=== PATIENT | female | born 1955 | race Caucasian/White ===

== ENCOUNTER 2018-06-05 02:17 | Emergency (ER) | payer MEDICARE, MEDICAID ==
--- NOTE | 2018-06-05 02:53 | ED ---
Neurological HPI - HPI Summary HPI Summary: This patient is a 63 year old F brought in by ambulance to [facility] from [facility] due to seizure like activity prior to arrival. Patient states she was told she had a seizure but does not recall the event. Patient denies incontinence. Patient has history of opioid use (not used in past 2 years) and meth uses (not used in roughly two months). [facility] facility was called for a more descriptive history as patient is unsure of events. [facility] staff described a generalized tonic-clonic seizure lasting 1-2 minutes. Patient was confused for a few minutes after and became more alert upon ambulance arrival. - History of Current Complaint Stated Complaint: SEIZURE Time Seen by Provider: 06/05/18 02:39 Hx Obtained From: Patient Onset/Duration: Sudden Onset Number of Seizures: 1 Neurological Deficit Location: Generalized Syncope Context: Witnessed Frequency: Episodes x___ - 1, Episodes Lasting ____ (in Mins/Days/Weeks/Years) - 1-2 minutes Seizure Character: Generalized, Total-Clonic - Allergy/Home Medications Allergies/Adverse Reactions: Allergies Allergy/AdvReac Type Severity Reaction Status Date / Time acetaminophen Allergy Unknown Verified 06/05/18 03:24 [From Darvocet-N] Reaction Details codeine Allergy Unknown Verified 06/05/18 03:24 Reaction Details ketorolac [From Toradol] Allergy Unknown Verified 06/05/18 03:24 Reaction Details methadone Allergy Unknown Verified 06/05/18 03:24 Reaction Details morphine Allergy Unknown Verified 06/05/18 03:24 Reaction Details Penicillins Allergy Unknown Verified 06/05/18 03:24 Reaction Details propoxyphene Allergy Unknown Verified 06/05/18 03:24 [From Darvocet-N] Reaction Details quetiapine [From Seroquel] Allergy Unknown Verified 06/05/18 03:24 Reaction Details sumatriptan [From Imitrex] Allergy Unknown Verified 06/05/18 03:24 Reaction Details Home Medications: Home Medications Albuterol HFA INHALER* [Ventolin HFA Inhaler*] 2 puff INH Q4H PRN 06/05/18 [ History Confirmed 06/05/18] Alendronate (NF) [Fosamax (NF)] 70 mg PO WEEKLY 06/05/18 [History Confirmed ] Aspirin 81 mg CHEW TAB* [Aspirin Low Dose TAB*] 81 mg PO DAILY 06/05/18 [ History Confirmed 06/05/18] Buprenorp/Nalox 8-2 MG FILM [Suboxone 8 mg-2 mg Sl Film] 1 each SL BID 06/05/18 [History Confirmed 06/05/18] Calcium Carbonate/Vitamin D3 [Calcium 500+D 500-200 mg-Unit] 1 tab PO DAILY [History Confirmed 06/05/18] Carvedilol TAB* [Coreg TAB*] 6.25 mg PO DAILY 06/05/18 [History Confirmed ] Fluticasone NASAL SPRAY 50MCG* [Flonase NASAL SPRAY 50MCG*] 2 spray BOTH NARES DAILY 06/05/18 [History Confirmed 06/05/18] Levothyroxine TAB* [Synthroid TAB*] 75 mcg PO DAILY 06/05/18 [History Confirmed 06/05/18] Loratadine 10 mg PO DAILY 06/05/18 [History Confirmed 06/05/18] Melatonin [Meladox] 3 mg PO BEDTIME PRN 06/05/18 [History Confirmed 06/05/18] Omeprazole CAP* [Prilosec CAP* 20 MG] 20 mg PO BID 06/05/18 [History Confirmed 06/05/18] Oxybutynin Chloride 10 mg PO BID 06/05/18 [History Confirmed 06/05/18] Sertraline* [Zoloft*] 100 mg PO DAILY 06/05/18 [History Confirmed 06/05/18] traZODone TAB* [Desyrel TAB*] 100 mg PO BEDTIME 06/05/18 [History Confirmed ] PMH/Surg Hx/FS Hx/Imm Hx EENT History: Denies: Hx Deafness Psychiatric History: Reports: Hx Substance Abuse - Surgical History Surgery Procedure, Year, and Place: none - Family History Known Family History: Positive: Hypertension - Social History [place]: [place] Alcohol Use: None Substance Use Type: Reports: None Substance Use Comment - Amount & Last Used: hx of opioid and meth abuse, Smoking Status (MU): Former Smoker Review of Systems Negative: Fever Neurological: Other - seizure like activity All Other Systems Reviewed And Are Negative: Yes Physical Exam - Summary Physical Exam Summary: Appearance: Well-appearing, Well-nourished, lying in bed comfortably Skin: Warm, dry, no obvious rash Eyes: sclera anicteric, no conjunctival pallor ENT: mucous membranes moist, Neck: Supple, nontender Respiratory: Clear to auscultation, no signs of respiratory distress Cardiovascular: Normal S1, S2. No murmurs. Normal distal pulses in tibial and radial bilaterally. Abdomen: Soft, nontender, normal active bowel sounds present Musculoskeletal: Normal, Strength/ROM Intact Neurological: A&Ox3, awake and alert, mentation is normal, speech is fluent and appropriate Psychiatric: affect is normal, does not appear anxious or depressed Triage Information Reviewed: Yes Vital Signs Reviewed: Yes Diagnostics - Laboratory Result Diagrams: 06/05/18 03:38 06/05/18 03:38 Lab Statement: Any lab studies that have been ordered have been reviewed, and results considered in the medical decision making process. - CT Brain CT CT Interpretation Completed By: Radiologist - No acute intracranial abnormality. ED Physician has reviewed this report. Course/Dx - Course Course Of Treatment: The patient has a history of seizures noted in the [facility] intake, and she does describe previous episodes which she is not sure were related to hypoglycemia versus seizures. The episode described by staff at [facility] to sound like generalized tonic-clonic seizure of fairly short duration, perhaps a minute or 2. She was postictal until the arrival of the ambulance. She is not on any new medications that would precipitate seizures, nor is she withdrawing from alcohol. Consequently, I have elected to start her on Dilantin pending neurological consultation which will need to be arranged through [facility]. - Diagnoses Provider Diagnoses: Seizure disorder Discharge - Sign-Out/Discharge Documenting (check all that apply): Patient Departure - Discharge Plan Condition: Good Disposition: HOME Prescriptions: Phenytoin CAP(*) [Dilantin CAP(*)] 100 mg PO TID #90 cap.er Patient Education Materials: Recurrent Seizures in Adults (ED) Referrals: Ruddy Huetra MD [Medical Doctor] - - Billing Disposition and Condition Condition: GOOD Disposition: Home - Attestation Statements Document Initiated by Scribe: Yes Documenting Scribe: Aida Love Provider For Whom Scribe is Documenting (Include Credential): Ronan Wilkes MD Scribe Attestation: Aida Shine, scribed for Ronan Wilkes MD on 06/06/18 at 0014. Scribe Documentation Reviewed: Yes Provider Attestation: The documentation as recorded by the Aida berger accurately reflects the service I personally performed and the decisions made by me, Ronan Wilkes MD
[2018-06-05 03:53] LABS: ABS Basophils 0 10^3/ul (0-0.2); ABS Eosinophils 0.1 10^3/ul (0-0.6); ABS Lymphocytes 1.7 10^3/ul (1.0-4.8); ABS Monocytes 0.5 10^3/ul (0-0.8); ABS Neutrophils 2.2 10^3/ul (1.5-7.7); ABS Nucleated RBC 0 10^3/ul; Eosinophil % 2.4 % (0-6); Hematocrit 29 % (35-47); Hemoglobin 9.5 g/dl (12.0-16.0); Lymphocyte % 38.2 % (25-47); Mean Corpuscular HGB Conc 33 g/dl (31-36); Mean Corpuscular Hemoglobin 32 pg (27-31); Mean Corpuscular Volume 97 fL (80-97); Mean Platelet Volume 7.7 fL (7.4-10.4); Nucleated Red Blood Cells % 0.1; Platelet Count 229 10^3/ul (150-450); Red Blood Count 2.99 10^6/ul (4.00-5.40); Red Cell Distribution Width 14 % (10.5-15); White Blood Count 4.6 10^3/ul (3.5-10.8)
[2018-06-05 04:11] LABS: EGFR Non-African American 71.4 (>60)
[2018-06-05 05:00] LABS: Urine Appearance Clear; Urine Blood Negative (Negative); Urine Color Yellow; Urine Ketones Negative (Negative); Urine Protein Negative (Negative); Urine Red Blood Cell Absent (Absent); Urine Urobilinogen Negative (Negative); Urine White Blood Cell 1+(6-10/hpf) (Absent)
[2018-06-05] MEDS ORDERED: Phenytoin IV(*) 1,000 MG in NS 0.9% 250 ML* 180 ML IV ONE (05:21)
[2018-06-05 06:55] VITALS: BP 99/63
[2018-06-05] MEDS ORDERED: Phenytoin CAP(*) 100 MG CAP.ER PO ONE ×2 (07:00)
== END 2018-06-05 06:54 | disposition home or self-care (01) ==
LOC: ED 02:17
DX: R56.9 Unspecified convulsions (principal); Z88.5 Allergy status to narcotic agent; Z88.0 Allergy status to penicillin; Z88.8 Allergy status to other drugs, medicaments and biological substances
CPT/HCPCS: 36415; 70450; 80053; 81003; 81015; 83605; 83735; 85025; 87086; 96374; 99283; A9270-GY

== ENCOUNTER 2018-06-05 22:12 | Inpatient (IN) | payer MEDICARE, MEDICAID ==
--- NOTE | 2018-06-05 22:32 | UC ---
Seizure HPI - HPI Summary HPI Summary: The pt is a 63 y/o female with a PMHx of opioid use brought in by ambulance to [facility] s/p a witnessed seizure episode lasting 90 seconds. The pt states that she was awake unlike a previous similar episode 1 day ago for which she was seen at [facility]. She notes SOB, tremors, fatigue, weakness, dyspnea, and bilateral LE soreness but denies LOC and incontinence. She says that her joints and muscles feel like she just ran a marathon. The LE pain is rated 7/10 in severity. Before the last 2 episodes, her last seizure occurred on 01/27/2018. As per EMS her BG was 123 mg/dL. The pt received Dilantin PO en route. She arrives from the [facility] ([facility] Home Medications Medication Instructions Recorded Confirmed Type Albuterol HFA INHALER* [Ventolin 2 puff INH Q4H PRN 06/05/18 06/05/18 History HFA Inhaler*] Alendronate (NF) [Fosamax (NF)] 70 mg PO WEEKLY 06/05/18 06/05/18 History Aspirin 81 mg CHEW TAB* [Aspirin 81 mg PO DAILY 06/05/18 06/05/18 History Low Dose TAB*] Buprenorp/Nalox 8-2 MG FILM 1 each SL BID 06/05/18 06/05/18 History [Suboxone 8 mg-2 mg Sl Film] Calcium Carbonate/Vitamin D3 1 tab PO DAILY 06/05/18 06/05/18 History [Calcium 500+D 500-200 mg-Unit] Carvedilol TAB* [Coreg TAB*] 6.25 mg PO DAILY 06/05/18 06/05/18 History Fluticasone NASAL SPRAY 50MCG* 2 spray BOTH NARES DAILY 06/05/18 06/05/18 History [Flonase NASAL SPRAY 50MCG*] Levothyroxine TAB* [Synthroid TAB*] 75 mcg PO DAILY 06/05/18 06/05/18 History Loratadine 10 mg PO DAILY 06/05/18 06/05/18 History Melatonin [Meladox] 3 mg PO BEDTIME PRN 06/05/18 06/05/18 History Omeprazole CAP* [Prilosec CAP* 20 20 mg PO BID 06/05/18 06/05/18 History MG] Oxybutynin Chloride 10 mg PO BID 06/05/18 06/05/18 History Phenytoin CAP(*) [Dilantin CAP(*)] 100 mg PO TID #90 cap.er 06/05/18 06/05/18 Rx Sertraline* [Zoloft*] 100 mg PO DAILY 06/05/18 06/05/18 History traZODone TAB* [Desyrel TAB*] 100 mg PO BEDTIME 06/05/18 06/05/18 History - History Of Current Complaint Chief Complaint: EDSeizure Stated Complaint: SEIZURE Time Seen by Provider: 06/05/18 22:27 Hx Obtained From: Patient, EMS Onset/Duration: Resolved Aggravating Factor(s): Nothing Alleviating Factor(s): Nothing Related History: Similar Episode/Dx As - 1 day ago-06/04/2018 and January 2018 - Allergies/Home Medications Allergies/Adverse Reactions: Allergies Allergy/AdvReac Type Severity Reaction Status Date / Time acetaminophen Allergy Unknown Verified 06/05/18 03:24 [From Darvocet-N] Reaction Details codeine Allergy Unknown Verified 06/05/18 03:24 Reaction Details ketorolac [From Toradol] Allergy Unknown Verified 06/05/18 03:24 Reaction Details methadone Allergy Unknown Verified 06/05/18 03:24 Reaction Details morphine Allergy Unknown Verified 06/05/18 03:24 Reaction Details Penicillins Allergy Unknown Verified 06/05/18 03:24 Reaction Details propoxyphene Allergy Unknown Verified 06/05/18 03:24 [From Darvocet-N] Reaction Details quetiapine [From Seroquel] Allergy Unknown Verified 06/05/18 03:24 Reaction Details sumatriptan [From Imitrex] Allergy Unknown Verified 06/05/18 03:24 Reaction Details PMH/Surg Hx/FS Hx/Imm Hx Previously Healthy: No - Hx of substance use Neurological History: Seizures - Surgical History Surgical History: Unable to Obtain/Confirm Surgery Procedure, Year, and Place: none - Family History Known Family History: Positive: Hypertension - Social History Occupation: Retired Lives: Assisted Living - [facility]) Alcohol Use: None Substance Use Type: None Substance Use Comment - Amount & Last Used: hx of opioid and meth abuse, Smoking Status (MU): Former Smoker Review of Systems All Other Systems Reviewed And Are Negative: Yes Constitutional: Positive: Fatigue Respiratory: Positive: Shortness Of Breath, Other - Dyspnea Genitourinary: Positive: Negative - Incontinence Motor: Positive: Other - Bilateral LE soreness Neurological: Positive: Negative - LOC, Weakness, Other - Tremors Physical Exam - Summary Physical Exam Summary: Appearance: Well-appearing, Well-nourished, lying in bed comfortably Skin: Warm, dry, no obvious rash Eyes: sclera anicteric, no conjunctival pallor ENT: mucous membranes moist, pharynx appears normal Neck: Supple, nontender Respiratory: Clear to auscultation, no signs of respiratory distress Cardiovascular: Normal S1, S2. No murmurs. Normal distal pulses in tibial and radial bilaterally. Abdomen: Soft, nontender, normal active bowel sounds present Musculoskeletal: Normal, Strength/ROM Intact, Motor function in all 4 extremities is normal and symmetric. There is no rigidity or tremor noted. Neurological: A&Ox3, awake and alert, mentation is normal, speech is fluent and appropriate, Level of consciousness nml. The patient is alert and oriented. Cranial nerves are grossly intact. Gaze is conjugate and without nystagmus. Peripheral vision is intact to confrontation. There are no gross sensory abnormalities to light touch. There is no truncal or fine motor ataxia. Gait is normal. Psychiatric: affect is normal, does not appear anxious or depressed Triage Information Reviewed: Yes Vital Signs: Initial Vital Signs Temp 98.2 F 06/05/18 22:20 Pulse 70 06/05/18 22:20 Resp 16 06/05/18 22:20 BP 133/80 06/05/18 22:20 Pulse Ox 96 06/05/18 22:20 Vital Signs Reviewed: Yes Diagnostics - Laboratory Diagnostic Studies Completed/Ordered: BRAIN CT IMPRESSION: No acute intracranial abnormality. The ED physician reviewed this radiology report. Seizure Course/Dx - Course Course Of Treatment: A 63 year-old F presents to the ED with a CC of a witnessed seizure episode lasting 90 seconds. She notes SOB, tremors, fatigue, weakness, dyspnea, and bilateral LE soreness but denies LOC and incontinence. A physical exam is unremarkable. A brain CT is unremarkable. I discussed the care of the pt with Dr. Edmund MD -hospitalist who agreed to admit the patient for monitoring and a neurology consult. The patient will be admitted with a final Dx of seizure disorder. Pt is agreeable with this plan. Allergies noted. - Differential Dx/Diagnosis Provider Diagnoses: Seizure disorder - Physician Notification/Consults Discussed Patient Care With: John Shaffer - Hospitalist Time Discussed With Above Provider: 23:15 Instructed by Provider To: Admit As Inpatient Discharge - Sign-Out/Discharge Documenting (check all that apply): Patient Departure - Admit - Discharge Plan Condition: Stable Disposition: ADMITTED TO [facility] - Billing Disposition and Condition Condition: STABLE Disposition: Admitted to [facility] - Attestation Statements Document Initiated by Scribe: Yes Documenting Scribe: Trixie Nuñez Provider For Whom Edvin is Documenting (Include Credential): Dr. Ronan Wilkes MD Scribe Attestation: Trixie Shine scressieed for Dr. Ronan Wilkes MD on 06/06/18 at 0048. Scribe Documentation Reviewed: Yes Provider Attestation: The documentation as recorded by the Trixie berger accurately reflects the service I personally performed and the decisions made by , Dr. Ronan Wilkes MD
[2018-06-05] MEDS ORDERED: levETIRAcetam IV* 1,000 MG in NS 0.9% 100 ML* 100 ML IVPB ONE (23:19)
[2018-06-05] MEDS ORDERED: Albuterol HFA INHALER* 8 gm MDI INH PRN (23:34)
[2018-06-05] MEDS ORDERED: Melatonin 3 MG TAB PO PRN (23:34)
[2018-06-06 00:06] LABS: EGFR Non-African American 70.4 (>60)
--- NOTE | 2018-06-06 01:40 | HP ---
ADMISSION HISTORY AND PHYSICAL: DATE OF ADMISSION: 06/05/18 CHIEF COMPLAINT: Recurrent seizures. HISTORY OF PRESENT ILLNESS: The patient is a 63-year-old lady with known history of seizures, where she mentioned she was admitted last January of this year and mentioned that she had atypical symptoms where she could not speak , but mentioned that she was told that she did not have a stroke. She then went out for rehab. She also has had history of illicit drug use where she mentions that her preferred drug to abuse would be p.o. pain meds and has only tried IV drug use with opiates 2 times in her life. She mentions that she has been clean of opiates, but relapsed this time with methamphetamine and currently the patient is admitted to [facility] and has been off illicit drug use for at least 33 days since she has been admitted. She was in her usual state of health until 1 day prior to admission where she presented to the ED after reportedly having what appears to be a tonic-clonic event at [facility] facility. She was then given a one-time dose Dilantin and was sent back to [facility]. Unfortunately, a few hours prior to admission, she started having some "shakes" especially of her lower extremities and felt weak and hence she was brought back to our ER for reevaluation and is currently being admitted for known seizure episode with failure of outpatient therapy. Furthermore, the patient mentions that she has not been receiving her antiseizure medication in [facility] and when asked what it was, she mentioned it started with the K and when I mentioned Bienvenidora, she mentioned that is what it was, although her previous documentation suggests that she might be on phenytoin in the past. PAST MEDICAL HISTORY: The patient, of note, is a poor historian and as mentioned unable to recall her antiseizure medications along with her medical history. She did mention a seizure episode last January of this year as described above and she also mentions that she has had problems in her sodium and potassium levels in the past. She mentions that she had some type of heart event where an AICD/pacemaker has been placed and on review of her medications on file, she is on aspirin and a beta shayna and mentions that she is being followed by a a/c technician, named Dr. Lacy in [place] part of the [facility] [place] system. She also describes a history of osteoporosis, bipolar disorder, ADHD, anxiety, and asthma as well as hypoglycemia. PAST SURGICAL HISTORY: Status post tonsillectomy, appendectomy, cholecystectomy , partial hysterectomy secondary to uterine tear during her fourth . ALLERGIES: To MORPHINE, which causes hives, TORADOL causes gastric upset and GI bleed as well as MANGOES. FAMILY HISTORY: Unknown; the patient cannot recall. SOCIAL HISTORY: History of illicit drug use mainly by p.o., has only used IV twice in her life. She smoked about 1 pack for 4 days for at least 3 years, but quit 16 years ago, normally resides at home with her , but currently at [facility] inpatient rehab. REVIEW OF SYSTEMS: The patient currently denies any headaches, dizziness, fevers, chills, nausea, vomiting, chest pain, shortness of breath, increased cough or sputum production, abdominal pain, diarrhea, constipation, pain and/or increased frequency on urination, myalgias, arthralgias, throat pain, or new skin lesions. The rest of the 14-point review of systems is otherwise unremarkable. PHYSICAL EXAMINATION GENERAL APPEARANCE: The patient is awake, somewhat confused, but oriented x3, not in acute distress. VITAL SIGNS: Reveals the most recent vital signs of records with blood pressure of 107/71, 70 beats per minute heart rate, saturating at 97% on room air. HEENT: Normocephalic, atraumatic. PERRLA. Extraocular muscles intact. Negative for icterus. Moist oral mucosa. Negative throat erythema. NECK: Soft, supple with no cervical lymphadenopathy. No JVD. CHEST: Clear to auscultation bilaterally. Good air entry. No wheezes, rales, or rhonchi. HEART: S1, S2 within normal limits. Regular rate and rhythm. No murmurs, rubs , or gallops. ABDOMEN: Soft, nondistended, nontender. Normoactive bowel sounds x4 quadrants. EXTREMITIES: No cyanosis, clubbing, or edema. PSYCHIATRIC: No active psychosis, depression, suicidal or homicidal ideations. SKIN: Warm to touch. DIAGNOSTIC STUDIES/LAB DATA: The most recent and pertinent laboratories drawn on 06/05/18 a few hours prior to admission at 3:38 shows CBC with WBC that is normal, H and H of 9.5 and 29, platelets of 229, which is normal. Sodium is mildly low at 129, potassium of 4.2, BUN and creatinine 15 and 0.81, GFR was found to be normal. ALT mildly elevated at 57, the rest of her LFTs are otherwise unremarkable. A brain CT done on 06/05/18 at 2:51 in the morning shows no acute intracranial abnormality. ASSESSMENT AND PLAN: The patient is a 63-year-old lady with unknown type of heart disease, but possibly have coronary artery disease, status post automatic implantable cardioverter-defibrillator pacemaker, known seizure disorder as well as hypothyroidism, who is a poor historian being admitted for a recurrent seizure episode likely due to the patient not receiving antiseizure meds at [facility]. 1. Seizures. Although her seizure episodes is unwitnessed, given she mentions a history of having been diagnosed with seizures and possibly on Keppra before being admitted to [facility], we will give the patient the Keppra loading dose of 1000 mg x1 and then we will provide 500 mg p.o. of Keppra starting tomorrow b.i.d. We will obtain serum prolactin and an EEG in a.m. We will defer to covering hospitalist in a.m. if they believe that neurological consultation is appropriate. Given the patient is a poor historian, we will ask nursing staff to obtain records from [facility] as well as records from a/c technician, Dr. Lacy, in [place] part of the [facility] system. 2. Euvolemic hyponatremia, possibly secondary to syndrome of inappropriate secretion of antidiuretic hormone. We will obtain TSH given the patient is hypothyroid and we will continue Synthroid and we will await TSH and free T4 levels that will be drawn. We will also obtain serum and urine osmolality as well as urine lytes and urine sodium as ordered. If above data is consistent with syndrome of inappropriate secretion of antidiuretic hormone, we will place the patient on fluid restriction given her psychiatric problems, it is possible also that she could have psychogenic polydipsia and hence we will await above labs as discussed. 3. Question of coronary artery disease, continue aspirin and carvedilol. 4. Hypothyroidism. Continue levothyroxine, we will check free T4 and TSH as discussed. 5. Gastroesophageal reflux disease. Continue omeprazole. 6. DVT prophylaxis. We will place the patient on Lovenox. 7. Disposition as above. [id number]/[facility] #: [id number] [facility]
[2018-06-06] MEDS: Levothyroxine TAB* 75 MCG TAB PO SCH (05:11)
[2018-06-06 05:42] LABS: ABS Basophils 0 10^3/ul (0-0.2); ABS Eosinophils 0.1 10^3/ul (0-0.6); ABS Lymphocytes 2.1 10^3/ul (1.0-4.8); ABS Monocytes 0.4 10^3/ul (0-0.8); ABS Nucleated RBC 0 10^3/ul; Eosinophil % 2.9 % (0-6); Hematocrit 27 % (35-47); Hemoglobin 8.9 g/dl (12.0-16.0); Lymphocyte % 56.5 % (25-47); Mean Corpuscular HGB Conc 33 g/dl (31-36); Mean Corpuscular Hemoglobin 32 pg (27-31); Mean Corpuscular Volume 96 fL (80-97); Mean Platelet Volume 7.6 fL (7.4-10.4); Nucleated Red Blood Cells % 0.1; Platelet Count 219 10^3/ul (150-450); Red Blood Count 2.81 10^6/ul (4.00-5.40); Red Cell Distribution Width 14 % (10.5-15); White Blood Count 3.6 10^3/ul (3.5-10.8)
[2018-06-06 06:04] LABS: EGFR Non-African American 72.4 (>60)
[2018-06-06] MEDS: Aspirin 81 mg CHEW TAB* 81 MG TAB.CHEW PO SCH (08:39)
[2018-06-06] MEDS: Omeprazole CAP* 20 MG PO SCH ×2 (08:39→20:52)
[2018-06-06] MEDS: Carvedilol TAB* 6.25 MG PO SCH (08:39)
[2018-06-06] MEDS: levETIRAcetam TAB* 500 MG PO SCH ×2 (08:40→20:52)
[2018-06-06] MEDS: Enoxaparin(*) 40 MG/0.4 ML SYR SUBCUT SCH (08:40)
[2018-06-06] MEDS: Buprenorp/Nalox 8-2 MG FILM 1 EACH SL FILM SCH ×2 (12:35→20:52)
[2018-06-06] MEDS: Fluticasone NASAL SPRAY 50MCG* 16 gm SPRAY BTL BOTH NARES SCH (12:35)
[2018-06-06] MEDS: Sertraline* 100 MG TAB PO SCH (12:35)
--- NOTE | 2018-06-06 15:17 | PN ---
Subjective Date of Service: 06/06/18 Interval History: Patient resting in bed on assessment. She is alert, oriented, and talkative. Neuro wnl. Poor historian. SR paced on monitor. Awaiting records from [facility] where patient was seen for "seizure" in January 2018. Patient explain on 01/27/18 she ran out of her suboxone and after 3 days of not having her usual dose she decided to have a "small dose of meth" to help her feel better. Approx 8 hrs later while patient was sleeping her witnessed her having seizure like activity. The next morning patient woke with right arm and both leg paralysis at which time her informed her of the seizure like activity. Patient then when to [facility] where she was dx with seizure, no meds prescribed, and discharge to a physical rehab facility where she stayed for 6 wks. She report paralysis started to improve the next day after seizure. Patient continues to explain she had a "seizure" on 06/05/18 while sleeping which was witness by roommate at [facility] and came to our ED who placed her on Dilantin and discharged her home. Patient reports she had another episode of seizure like activity this morning 06/06 while sleeping and was brought back to ED and then admitted to tele. Patient denies aura as she has been sleeping when seizure like activity occurs and the activity is witness by others. Denies loss of bowel or bladder control. 12 point ROS completed and all negative. Objective Active Medications: Albuterol (Ventolin Hfa Inhaler*) 2 puff INH Q4H PRN PRN Reason: WHEEZING Aspirin (Aspirin 81 Mg Chew Tab*) 81 mg PO DAILY [facility] Last Admin: 06/06/18 08:39 Dose: 81 mg Buprenorphine/Naloxone (Suboxone 8 Mg-2 Mg Sl Film) 1 each SL FILM BID [facility] Last Admin: 06/06/18 12:35 Dose: 1 each Carvedilol (Coreg Tab*) 6.25 mg PO DAILY [facility] Last Admin: 06/06/18 08:39 Dose: 6.25 mg Cetirizine HCl (Zyrtec*) 10 mg PO QPM [facility] Enoxaparin Sodium (Lovenox(*)) 40 mg SUBCUT Q24H [facility] Last Admin: 06/06/18 08:40 Dose: 40 mg Fluticasone Propionate (Flonase Nasal [place] 50mcg*) 2 spray BOTH NARES DAILY [facility] Last Admin: 06/06/18 12:35 Dose: 2 spray Levetiracetam (Keppra Tab*) 500 mg PO BID [facility] Last Admin: 06/06/18 08:40 Dose: 500 mg Levothyroxine Sodium (Synthroid Tab*) 75 mcg PO DAILY@0600 [facility] Last Admin: 06/06/18 05:11 Dose: 75 mcg Melatonin (Melatonin) 3 mg PO BEDTIME PRN; Protocol PRN Reason: INSOMNIA Omeprazole (Prilosec Cap*) 20 mg PO BID [facility] Last Admin: 06/06/18 08:39 Dose: 20 mg Oxybutynin Chloride (Ditropan Tab*) 5 mg PO BEDTIME [facility] Sertraline HCl (Zoloft*) 100 mg PO DAILY [facility] Last Admin: 06/06/18 12:35 Dose: 100 mg Trazodone HCl (Desyrel Tab*) 100 mg PO BEDTIME [facility] Vital Signs - 8 hr 06/06/18 06/06/18 06/06/18 07:08 07:33 11:08 Temperature 99.1 F 98.0 F Pulse Rate 70 70 Respiratory 16 16 20 Rate Blood Pressure 93/60 106/65 (mmHg) O2 Sat by Pulse 100 98 Oximetry Oxygen Devices in Use Now: None Appearance: Chronically ill appearing, NAD Eyes: No Scleral Icterus, PERRLA, - - EOMs intact Ears/Nose/Mouth/Throat: Mucous Membranes Moist Neck: NL Appearance and Movements; NL JVP Respiratory: Symmetrical Chest Expansion and Respiratory Effort, Clear to Auscultation Cardiovascular: NL Sounds; No Murmurs; No JVD, No Edema Abdominal: NL Sounds; No Tenderness; No Distention Lymphatic: No Cervical Adenopathy Extremities: No Edema, No Clubbing, Cyanosis Skin: No Rash or Ulcers Neurological: Alert and Oriented x 3, NL Sensation, NL Muscle Strength and Tone , - - Cranial nerves intact. No drift. Coordination intact. Nutrition: Taking PO's Result Diagrams: 06/06/18 05:26 06/06/18 05:26 Additional Lab and Data: Laboratory Results - last 24 hr 06/05/18 06/05/18 06/05/18 23:36 23:36 23:37 WBC RBC Hgb Hct MCV MCH MCHC RDW Plt Count MPV Neut % (Auto) Lymph % (Auto) [place] % (Auto) Eos % (Auto) Baso % (Auto) Absolute Neuts (auto) Absolute Lymphs (auto) Absolute Monos (auto) Absolute Eos (auto) Absolute Basos (auto) Absolute Nucleated RBC Nucleated RBC % Sodium 131 L Potassium 4.8 Chloride 101 Carbon Dioxide 25 Anion Gap 5 BUN 13 Creatinine 0.82 Est GFR ( Amer) 85.2 Est GFR (Non-Af Amer) 70.4 BUN/Creatinine Ratio 15.9 Glucose 107 H Serum Osmolality 278 Calcium 8.5 L Phosphorus Magnesium Total Bilirubin AST ALT Alkaline Phosphatase Total Protein Albumin Globulin Albumin/Globulin Ratio TSH 4.98 Free T4 0.91 Prolactin 17.0 06/06/18 06/06/18 05:26 05:26 WBC 3.6 RBC 2.81 L Hgb 8.9 L Hct 27 L MCV 96 MCH 32 H MCHC 33 RDW 14 Plt Count 219 MPV 7.6 Neut % (Auto) 27.5 L Lymph % (Auto) 56.5 H [place] % (Auto) 11.8 H Eos % (Auto) 2.9 Baso % (Auto) 1.3 Absolute Neuts (auto) 1.0 L Absolute Lymphs (auto) 2.1 Absolute Monos (auto) 0.4 Absolute Eos (auto) 0.1 Absolute Basos (auto) 0 Absolute Nucleated RBC 0 Nucleated RBC % 0.1 Sodium 134 L Potassium 4.5 Chloride 104 Carbon Dioxide 26 Anion Gap 4 BUN 13 Creatinine 0.80 Est GFR ( Amer) 87.7 Est GFR (Non-Af Amer) 72.4 BUN/Creatinine Ratio 16.3 Glucose 106 H Serum Osmolality Calcium 8.1 L Phosphorus 4.6 Magnesium 2.0 Total Bilirubin 0.20 AST 25 ALT 44 Alkaline Phosphatase 54 Total Protein 4.7 L Albumin 3.2 Globulin 1.5 L Albumin/Globulin Ratio 2.1 TSH Free T4 Prolactin Microbiology and Other Data: . Diagnostic Imaging: . Assess/Plan/Problems-Billing Assessment: The pt is a 63 y/o female with a PMHx of opioid use, AICD/Pacemaker, osteoporosis, bipolar d/o, ADHD, anxiety, asthma, hypoglycemia, hypothyroid, CAD , brought in by ambulance to [facility] s/p a witnessed seizure episode - Patient Problems (1) Seizure Comment: - Poor historian. Possible 3 episodes of seizure like activity while sleeping since January 2018. - EEG obtained and awaiting results. - Requested consult from Dr Shukla who will see patient this afternoon. - Awaiting records from [facility] (2) Opioid abuse Comment: - Reviewed med rec with [facility] and [facility] - Restarted patient suboxone as per outpatient dosing (3) CAD (coronary artery disease) Comment: - AICD/Pacemaker in placed. - SR paced on tele. - Awaiting records for review (4) Anxiety Comment: - Zoloft restarted. (5) Hypoglycemia Comment: - Morning BG 106 (6) Hypothyroid Comment: - TSH 4.98 - I will hold off on adjusting synthroid during acute period and as she is close to goal. - Patient should follow up with pcp after discharge for adjusting and followup Status and Disposition: Inpatient. Awaiting neurology consult. Discharge to [facility] when medically stable. Attending: Jaimie Dhillon
[2018-06-06] MEDS ORDERED: Cetirizine* 10 MG TAB PO SCH (18:00)
[2018-06-06] MEDS ORDERED: traZODone TAB* 100 MG PO SCH (21:00)
[2018-06-06] MEDS ORDERED: Oxybutynin TAB* 5 MG PO SCH (21:00)
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
[2018-06-07] MEDS: Levothyroxine TAB* 75 MCG TAB PO SCH (05:02)
[2018-06-07 05:35] LABS: Hematocrit 29 % (35-47); Mean Corpuscular HGB Conc 34 g/dl (31-36); Mean Corpuscular Hemoglobin 33 pg (27-31); Mean Corpuscular Volume 96 fL (80-97); Mean Platelet Volume 7.7 fL (7.4-10.4); Platelet Count 236 10^3/ul (150-450); Red Blood Count 3.06 10^6/ul (4.00-5.40); Red Cell Distribution Width 13 % (10.5-15); White Blood Count 4.3 10^3/ul (3.5-10.8)
[2018-06-07 05:51] LABS: EGFR Non-African American 79.3 (>60)
[2018-06-07 06:09] LABS: ABS Basophils 0.1 10^3/ul (0-0.2); ABS Eosinophils 0.1 10^3/ul (0-0.6); ABS Lymphocytes 2.6 10^3/ul (1.0-4.8); ABS Monocytes 0.4 10^3/ul (0-0.8); ABS Neutrophils 1.1 10^3/ul (1.5-7.7); ABS Nucleated RBC 0 10^3/ul; Eosinophil % 2.6 %; Lymphocyte % 60.2 %; Nucleated Red Blood Cells % 0.2
[2018-06-07] MEDS: Sertraline* 100 MG TAB PO SCH (08:15)
[2018-06-07] MEDS: levETIRAcetam TAB* 500 MG PO SCH (08:15)
[2018-06-07] MEDS: Carvedilol TAB* 6.25 MG PO SCH (08:15)
[2018-06-07] MEDS: Fluticasone NASAL SPRAY 50MCG* 16 gm SPRAY BTL BOTH NARES SCH (08:15)
[2018-06-07] MEDS: Aspirin 81 mg CHEW TAB* 81 MG TAB.CHEW PO SCH (08:15)
[2018-06-07] MEDS: Omeprazole CAP* 20 MG PO SCH (08:15)
[2018-06-07] MEDS: Buprenorp/Nalox 8-2 MG FILM 1 EACH SL FILM SCH (08:15)
[2018-06-07] MEDS: Enoxaparin(*) 40 MG/0.4 ML SYR SUBCUT SCH (08:15)
[2018-06-07 11:31] VITALS: BP 113/67
--- NOTE | 2018-06-07 11:41 | PN ---
Subjective Date of Service: 06/07/18 Interval History: Resting in bed on assessment. No seizure activity last evening per nursing noted. Patient reports she "felt like" she might have a seizure as she woke with right leg "seizing" and "stiff". Reports she did not have seizure activity. No longer having symptoms on right leg. Denies cp, sob, palpitations, n/v/d, dizziness, headache. 12 point ROS completed and all other negative. Objective Active Medications: Albuterol (Ventolin Hfa Inhaler*) 2 puff INH Q4H PRN PRN Reason: WHEEZING Aspirin (Aspirin 81 Mg Chew Tab*) 81 mg PO DAILY [facility] Last Admin: 06/07/18 08:15 Dose: 81 mg Buprenorphine/Naloxone (Suboxone 8 Mg-2 Mg Sl Film) 1 each SL FILM BID [facility] Last Admin: 06/07/18 08:15 Dose: 1 each Carvedilol (Coreg Tab*) 6.25 mg PO DAILY [facility] Last Admin: 06/07/18 08:15 Dose: 6.25 mg Cetirizine HCl (Zyrtec*) 10 mg PO QPM [facility] Last Admin: 06/06/18 16:48 Dose: 10 mg Enoxaparin Sodium (Lovenox(*)) 40 mg SUBCUT Q24H [facility] Last Admin: 06/07/18 08:15 Dose: 40 mg Fluticasone Propionate (Flonase Nasal [place] 50mcg*) 2 spray BOTH NARES DAILY [facility] Last Admin: 06/07/18 08:15 Dose: 2 spray Levetiracetam (Keppra Tab*) 500 mg PO BID [facility] Last Admin: 06/07/18 08:15 Dose: 500 mg Levothyroxine Sodium (Synthroid Tab*) 75 mcg PO DAILY@0600 [facility] Last Admin: 06/07/18 05:02 Dose: 75 mcg Melatonin (Melatonin) 3 mg PO BEDTIME PRN; Protocol PRN Reason: INSOMNIA Omeprazole (Prilosec Cap*) 20 mg PO BID [facility] Last Admin: 06/07/18 08:15 Dose: 20 mg Oxybutynin Chloride (Ditropan Tab*) 5 mg PO BEDTIME [facility] Last Admin: 06/06/18 20:52 Dose: 5 mg Sertraline HCl (Zoloft*) 100 mg PO DAILY [facility] Last Admin: 06/07/18 08:15 Dose: 100 mg Trazodone HCl (Desyrel Tab*) 100 mg PO BEDTIME [facility] Last Admin: 06/06/18 20:52 Dose: 100 mg Vital Signs - 8 hr 06/07/18 06/07/18 06/07/18 07:31 07:36 07:39 Temperature 98.1 F Pulse Rate 73 Respiratory 16 16 Rate Blood Pressure 98/58 (mmHg) O2 Sat by Pulse 93 Oximetry 06/07/18 11:13 Temperature 97.6 F Pulse Rate 72 Respiratory 18 Rate Blood Pressure 113/67 (mmHg) O2 Sat by Pulse 99 Oximetry Oxygen Devices in Use Now: None Appearance: Chronically ill, NAD Eyes: PERRLA Ears/Nose/Mouth/Throat: Mucous Membranes Moist Neck: NL Appearance and Movements; NL JVP Respiratory: Symmetrical Chest Expansion and Respiratory Effort, Clear to Auscultation Cardiovascular: NL Sounds; No Murmurs; No JVD, RRR, No Edema Abdominal: NL Sounds; No Tenderness; No Distention Lymphatic: No Cervical Adenopathy Extremities: No Edema Skin: No Rash or Ulcers Neurological: Alert and Oriented x 3, NL Muscle Strength and Tone Nutrition: Taking PO's Result Diagrams: 06/07/18 05:19 06/07/18 05:19 Additional Lab and Data: Laboratory Results - last 24 hr 06/07/18 06/07/18 06/07/18 05:19 05:19 08:48 WBC 4.3 RBC 3.06 L Hgb 10.0 L Hct 29 L MCV 96 MCH 33 H MCHC 34 RDW 13 Plt Count 236 MPV 7.7 Neut % (Auto) 26.6 Lymph % (Auto) 60.2 [place] % (Auto) 9.3 Eos % (Auto) 2.6 Baso % (Auto) 1.3 Absolute Neuts (auto) 1.1 L Absolute Lymphs (auto) 2.6 Absolute Monos (auto) 0.4 Absolute Eos (auto) 0.1 Absolute Basos (auto) 0.1 Absolute Nucleated RBC 0 Nucleated RBC % 0.2 Sodium 133 L Potassium 4.7 Chloride 102 Carbon Dioxide 27 Anion Gap 4 BUN 15 Creatinine 0.74 Est GFR ( Amer) 95.9 Est GFR (Non-Af Amer) 79.3 BUN/Creatinine Ratio 20.3 H Glucose 104 H Calcium 8.6 Iron 34 L TIBC 398 % Saturation 9 L Unsat Iron Binding < 383 Transferrin 284 Ferritin 7.0 L Vitamin B12 524 Folate 7.41 Urine Osmolality 227 Ur Creatinine Concen U Sodium Concentration 06/07/18 08:48 WBC RBC Hgb Hct MCV MCH MCHC RDW Plt Count MPV Neut % (Auto) Lymph % (Auto) [place] % (Auto) Eos % (Auto) Baso % (Auto) Absolute Neuts (auto) Absolute Lymphs (auto) Absolute Monos (auto) Absolute Eos (auto) Absolute Basos (auto) Absolute Nucleated RBC Nucleated RBC % Sodium Potassium Chloride Carbon Dioxide Anion Gap BUN Creatinine Est GFR ( Amer) Est GFR (Non-Af Amer) BUN/Creatinine Ratio Glucose Calcium Iron TIBC % Saturation Unsat Iron Binding Transferrin Ferritin Vitamin B12 Folate Urine Osmolality Ur Creatinine Concen 26.39 U Sodium Concentration 67 Microbiology and Other Data: . Diagnostic Imaging: . Assess/Plan/Problems-Billing Assessment: The pt is a 63 y/o female with a PMHx of opioid use, AICD/Pacemaker, osteoporosis, bipolar d/o, ADHD, anxiety, asthma, hypoglycemia, hypothyroid, CAD , brought in by ambulance to [facility] s/p a witnessed seizure episode - Patient Problems (1) Seizure Comment: - Poor historian. Possible 3 episodes of seizure like activity while sleeping since January 2018. - EEG revealed possible focal neuronal dysfunction - Cannot have MRI d/t AICD/Pacemaker - Dr Shukla consulted and recommends Obtaining recrods from [facility] and [facility], f/ u with Dr Huerta in 3 wks for ambulatory EEG and videa EEG, continue Keppra 500 mg BID, discontinue Dilantin. In addition, if patient is seizure free can be d/ c today, but if patient has repeat seizure activity she should be transfered to [facility] for longer term video EEG - [facility] records received and in chart - Discussed last nights right leg symptoms with Gayla who recommended discharge and outpatient follow up (2) Opioid abuse Comment: - Reviewed med rec with [facility] and [facility] - Restarted patient suboxone as per outpatient dosing (3) CAD (coronary artery disease) Comment: - AICD/Pacemaker in placed. - SR paced on tele. (4) Anxiety Comment: - Zoloft restarted. (5) Hypoglycemia Comment: - Morning BG 106 (6) Hypothyroid Comment: - TSH 4.98 - I will hold off on adjusting synthroid during acute period and as she is close to goal. - Patient should follow up with pcp after discharge for adjusting and followup Status and Disposition: Inpatient. Discharge to [facility] with follow up with [facility] and Neurology Attending: Jaimie Dhillon
--- NOTE | 2018-06-07 15:51 | EEG ---
ELECTROENCEPHALOGRAPHY: DATE OF STUDY: 06/06/18 ORDERED BY: John Shaffer MD. INDICATION: Mrs. Finnegan is a 63-year-old female who has recurrent seizure- like episodes. This EEG was obtained to evaluate for epileptiform abnormalities or electrographic seizures. MEDICATIONS: 1. Aspirin. 2. Coreg. 3. Lovenox. 4. Keppra. 5. Prilosec. 6. Desyrel. 7. Synthroid. 8. Ventolin. 9. Melatonin. RECORDING TIME: 9:15 a.m. - 9:41 a.m. CLINICAL STATE: Awake and sleep. BACKGROUND: The waking background showed appropriate organization with clearly defined anterior-posterior voltage and frequency gradients. There was a well- defined posterior dominant rhythm of 8.5 Hz, which was symmetrical and showed normal reactivity. Anteriorly, there was an expected pattern of lower voltage, irregular, mixed faster frequencies. There were occasional intermittent, polymorphic, paroxysms of 2-4 Hz theta and delta slowing lasting 0.5 -1 second. The slowing was more prominent over the left frontal temporal region maximal at F7, T5, and T3. There were no epileptiform discharges. At 9:29:46, the patient reported to the technologist that she is having "the tingling feeling like a seizure was coming." There were no EEG changes or electrographic correlate to this clinical event. She did not have any active seizures. Attenuation of the posterior dominant rhythm accompany drowsiness. There were positive occipital short transient waves, a normal variant, seen during drowsiness. There were rare faster frequency in the central region indicative of sleep spindle, but occasional K-complexes. Photic stimulation and hyperventilation were not performed. IMPRESSION: This is an abnormal awake and sleep EEG due to the presence of occasional, diffuse, paroxysmal slowing that is prominently seen over the left frontotemporal region. Otherwise, the background frequency and organization was normal. These findings are suggestive of mild, diffuse, encephalopathy that is nonspecific with possibly suspected focal neuronal dysfunction in the left frontotemporal region. The episode of "tingling feeling like it was a seizure warning" was documented by our technologist and did not correlate with any EEG changes or electrographic seizures. Therefore, we cannot entirely exclude epilepsy given this recording or finding. The patient will need a parts counterman video EEG monitoring or an ambulatory study as an outpatient to further characterize her events. [id number]/[facility] #: [id number] AGUSTINA
--- NOTE | 2018-06-08 09:57 | DS ---
CC: [facility] * DISCHARGE SUMMARY: DATE OF ADMISSION: 06/05/18 DATE OF DISCHARGE: 06/07/18 PRIMARY CARE PROVIDER: The patient has no primary care provider; therefore she will be referred to [facility]. ATTENDING PHYSICIAN: Dr. Francis * (dictated by Jon Martínez NP.) PRIMARY DIAGNOSES: 1. Seizures. 2. Polysubstance abuse. SECONDARY DIAGNOSES: 1. Rhabdomyolysis. 2. Thought paralysis. 3. Hypertension. 4. Hypothyroid. 5. Depression. 6. Bipolar. 7. Heart block, status post pacemaker. 8. Gastroesophageal reflux disease. 9. Overactive bladder. 10. Asthma. 11. Anxiety. CONSULTATIONS WHILE IN THE HOSPITAL: Dr. Shukla, Neurology. PROCEDURES WHILE IN THE HOSPITAL: No procedures were completed. STUDIES WHILE IN THE HOSPITAL: 1. Brain CT: Impression: No acute intracranial abnormalities. 2. EEG: Mild diffuse slowing that is greater in the left frontotemporal region , suggestive of possible focal neuronal dysfunction. DISCHARGE HOME MEDICATIONS: New home medications: 1. Keppra 150 mg p.o. b.i.d. 2. Ferrous sulfate 325 mg p.o. b.i.d. Continued home medications: 1. Loratadine 10 mg p.o. daily. 2. Levothyroxine 75 mcg p.o. daily. 3. Flonase 2 sprays both nares daily. 4. Coreg 6.25 mg p.o. daily. 5. Calcium carbonate/vitamin D3 one tab p.o. daily. 6. Suboxone 8 mg/2 mg sublingual film, 1 sublingual b.i.d. 7. Aspirin 81 mg 2. 8. Fosamax 70 mg p.o. weekly. 9. Ventolin HFA 2 puffs inhalation q.4 hours p.r.n. 10. Trazodone 100 mg p.o. at bedtime. 11. Zoloft 100 mg p.o. at bedtime. 12. Oxybutynin 5 mg p.o. at bedtime. 13. Prilosec 20 mg p.o. b.i.d. 14. Melatonin 3 mg p.o. at bedtime p.r.n. Discontinued home medications: 1. Dilantin. HISTORY OF PRESENT ILLNESS/HOSPITAL COURSE: Mrs. Kain Lehman is a 63-year- old female with a past medical history of seizures, polysubstance abuse, hypertension, hypothyroid, heart block, status post pacemaker, anxiety, who presented to the ED on 06/05/18 with a seizure-like activity. She initially presented to the ED on 06/05/18 and was discharged at 0200 in the morning after a seizure-like activity that was witnessed by her staff member at [facility]. Patient had a CT of the brain, which was negative. Patient reported that she had a history of seizures, had not been taking her medications , therefore she was discharged with Dilantin back to [facility]. Later that day,, patient presented again to the ED around 2200, with an additional episode of seizure-like activity, once again witnessed by staff/roommate at [facility] while patient was sleeping. At this time, the patient was admitted to the hospital on telemetry for further evaluation. The patient was given a loading dose of 1000 mg of Keppra and started on Keppra 500 mg p.o. b.i.d. The patient mentions that she did not have a seizure history until December 2017. She reports that at this time, she suffered a seizure while sleeping, which was witnessed by her . The next morning, she woke and was unable to use her right arm and bilateral legs; at which point, her and her presented to [facility] Emergency Room. Patient was seen in the [facility] Emergency Room. She was diagnosed with seizure disorder, started on Keppra 500 mg p.o. b.i.d., and she was discharged to a subacute rehab facility for physical rehab. Patient reports she was at this facility for approximately 6 weeks and then discharged home. Patient reports that she did not have any seizure activity until . We believe the patient's recent episodes of seizure activity are due to the fact that since the patient had been inpatient at [facility] , she has not been receiving her Keppra. Without the Keppra, the patient has had these episodes. It should be mentioned that the patient is in [facility] due to a history of illicit drug use, but she mentions that her preferred drug of choice would be p.o. pain meds and had only tried IV drug use with opiates 2 times in her life. She mentions that she also had a small dose of meth in January 2018 prior to her first seizure. It should also be mentioned that patient had been at [facility] for 33 days. While in the hospital, the patient was admitted on telemetry, which was due to history of heart block and AICD/pacemaker. Patient's telemetry was unremarkable. In addition, the patient had a consult with Neurology given her seizure history. She underwent an EEG, which results as mentioned above. The patient's neurological assessments have been within normal limits. Neurology believes that patient's report of not taking Keppra since being transferred to [facility] 34 days ago would correlate with her increased seizure episode. Neurology also states the patient may have underlying frontal/nocturnal epilepsy given the episodes only occurred at night time. Patient will need further evaluation on outpatient basis, which should include ambulatory EEG, 72-hour study, or long -term video EEG monitoring for her antiseizure medications. Patient has also been educated that she is not to drive, operate heavy machinery, swim unattended , bath unattended, or climb rooftops or ladders due to her seizure activity. She should refrain from all these activities for at least 6 months of seizure- free and/or once cleared by Neurology. Neurology also recommends if she continues to have these episodes, she should be transferred to [facility] for long-term EEG monitoring. It should be mentioned that we did not complete an MRI as the patient has a history of ICD/pacemaker placement. Neurology believes the patient is safe for discharge since she had been seizure- free since admission. He also recommends to refrain from use of any given her drug history unless her generalized tonic-clonic seizures last greater than 5 minutes or 3 complex partial seizures [id number] without regaining consciousness. It was also noted during patient's admission that she has anemia , possibly iron- deficient anemia, as evidenced by hemoglobin and hematocrit on 06/06/18 was 8.9 and 27. Today, on 06/07/18, hemoglobin and hematocrit is 10 and 29. Iron studies are completed; ferritin is 7.0, iron 34, iron saturation 9. Patient has been placed on p.o. ferrous sulfate 325 mg b.i.d. She reports she has been taking these at home but was not been given them at [facility]. PHYSICAL EXAMINATION: Please see progress note completed by this fha underwriter. It should be noted the patient's neurological exam is normal. REVIEW OF SYSTEMS: Twelve-point review of systems completed and all negative. Also see progress note completed by this fha underwriter today. FOLLOWUP: 1. Patient should follow up with Dr. Huerta in 3 to 4 weeks for further evaluation and management of seizure medications. 2. Patient has been referred to the [facility] as she has not established with a primary care provider currently. She will need a followup regarding hypothyroid. Her TSH on 06/05/18 was 4.98. Her medication was not adjusted while in the hospital due to concern for followup. Therefore, it will need to be adjusted as an outpatient. In addition, patient would benefit from further evaluation of anemia. I have sent stool sample, which was negative for blood. Patient reports she has had multiple colonoscopies in the past. 3. Heart block with pacer. Patient should follow up with her primary care provider/[facility]. In addition, the patient would very much benefit from regular followup with her fuel oil truck driver, Dr. Lacy, in [place]. 4. [facility]: Patient is currently at [facility] for polysubstance abuse. Patient should continue treatment. I personally have called the nurse at this facility and updated her of plan and patient's discharge. I stressed the importance of patient taking Keppra and discontinuing Dilantin. I also stressed the importance of seizure precautions. 5. The patient has been educated on seizure precautions including no driving, operating heavy machinery, climbing ladders, climbing onto roofs, swimming unattended, or bathing unattended. Patient has also been educated on signs and symptoms of new or worsening condition and when to contact her primary care provider/[facility] or go to the nearest emergency room. The patient stated understanding. This is a summarized report of a complex medical history and hospital stay. For further details, please see the entire medical record. TIME SPENT: Approximately 60 minutes were spent on this discharge, greater than half the time was spent [id number] with the patient discussing discharge plans and instructions. JON MARTÍNEZ, AUSTEN [id number]/[facility] #: [id number] AGUSTINA
== END 2018-06-07 15:00 | DRG 101 ==
LOC: ED 22:12 → MEDTELE 23:20
PROVIDERS: ADMIT Student in an Organized Health Care Education/Training Program; ATTEND Student in an Organized Health Care Education/Training Program
DX: G40.909 Epilepsy, unspecified, not intractable, without status epilepticus (principal); M62.82 Rhabdomyolysis; E87.1 Hypo-osmolality and hyponatremia; I25.10 Atherosclerotic heart disease of native coronary artery without angina pectoris; I11.9 Hypertensive heart disease without heart failure; F19.10 Other psychoactive substance abuse, uncomplicated; E03.9 Hypothyroidism, unspecified; F31.9 Bipolar disorder, unspecified; I45.9 Conduction disorder, unspecified; K21.9 Gastro-esophageal reflux disease without esophagitis; N32.81 Overactive bladder; J45.909 Unspecified asthma, uncomplicated; F41.9 Anxiety disorder, unspecified; E16.2 Hypoglycemia, unspecified; G83.84 Todd's paralysis (postepileptic); D64.9 Anemia, unspecified; Z95.810 Presence of automatic (implantable) cardiac defibrillator; Z88.5 Allergy status to narcotic agent; Z88.8 Allergy status to other drugs, medicaments and biological substances; Z87.891 Personal history of nicotine dependence; Z91.018 Allergy to other foods; Z88.0 Allergy status to penicillin
CPT/HCPCS: 36415; 70450; 80048; 80053; 80177; 81003; 81015; 82270; 82570; 82607; 82728; 82746; 83540; 83550; 83605; 83735; 83930; 83935; 84100; 84146; 84300; 84439; 84443; 85025; 87086; 95819; 96374; 99283; 99284; A9270-GY; J1650

== ENCOUNTER 2018-08-25 09:20 | Inpatient (IN) | payer MEDICARE, MEDICAID ==
[2018-08-25] MEDS ORDERED: NS 0.9% 1000 ML** 1,000 ML IV.FLUID IV ONE (09:27)
[2018-08-25] MEDS ORDERED: cefTRIAXone(*) 1 GM in NS 0.9% 50 ML* 50 ML IVPB ONE (09:31)
--- NOTE | 2018-08-25 09:31 | ED ---
Sepsis HPI - HPI Summary HPI Summary: A 63 y/o F brought in by ambulance presents to ED with fever onset three days ago. Her pain is rated as 7 out of 10. Associated sx: dehydration, back pain, abd pain, vomiting. Denies: diarrhea. She has a known UTI and is taking an ABX but is unsure which one. [Macrobid]. She is a non-smoker, denies ETOH. She has not used IV drugs for 3 years. Pert PMHx: kidney stones. Allergies discussed. 0913: EMS called en route to give report report, patient meets sepsis criteria 0922: ED provider is at bedside, upon patient arrival - History of Current Complaint Stated Complaint: POSS FEVER/CONFUSION Hx Obtained From: Patient, EMS Onset/Duration: Started Days Ago, Still Present Timing: Constant Current Severity: Severe Pain Intensity: 7 Pain Scale Used: 0-10 Numeric Associated Signs & Symptoms: Vomiting, Other - pos: dehydrated, back pain, abd pain. neg: diarrhea. - Additional Pertinent History Primary Care Physician: [id number] - Allergy/Home Medications Allergies/Adverse Reactions: Allergies Allergy/AdvReac Type Severity Reaction Status Date / Time acetaminophen Allergy Unknown Verified 06/05/18 03:24 [From Darvocet-N] Reaction Details codeine Allergy Unknown Verified 06/05/18 03:24 Reaction Details ketorolac [From Toradol] Allergy Unknown Verified 06/05/18 03:24 Reaction Details methadone Allergy Unknown Verified 06/05/18 03:24 Reaction Details morphine Allergy Unknown Verified 06/05/18 03:24 Reaction Details Penicillins Allergy Unknown Verified 06/05/18 03:24 Reaction Details propoxyphene Allergy Unknown Verified 06/05/18 03:24 [From Darvocet-N] Reaction Details quetiapine [From Seroquel] Allergy Unknown Verified 06/05/18 03:24 Reaction Details sumatriptan [From Imitrex] Allergy Unknown Verified 06/05/18 03:24 Reaction Details Home Medications: Home Medications Acetaminophen TAB* [Tylenol TAB*] 325 - 650 mg PO Q6H PRN 08/25/18 [History Confirmed 08/25/18] Albuterol inh POWDER (NF) [Proair Respiclick] 2 puff INH Q4HR PRN 08/25/18 [ History Confirmed 08/25/18] Alendronate (NF) [Fosamax (NF)] 70 mg PO WEEKLY 08/25/18 [History Confirmed ] Aspirin EC TAB* [Ecotrin EC Low Dose 81 MG*] 81 mg PO DAILY 08/25/18 [History Confirmed 08/25/18] Aspirin TAB* [Aspirin 325 MG TAB*] 325 mg PO DAILY PRN 08/25/18 [History Confirmed 08/25/18] Bismuth Subsalicylate [Pepto-Bismol] 524 mg PO Q1HR PRN 08/25/18 [History Confirmed 08/25/18] Calcium Carbonate CHEW TAB* [Tums*] 1,000 mg PO BID PRN 08/25/18 [History Confirmed 08/25/18] Calcium Carbonate/Vitamin D3 [Oyster Shell 500-Vit D3 200 Pk] 1 tab PO DAILY [History Confirmed 08/25/18] Eucalyptus/Menthol [Null Cough Drops] 1 jose PO Q2HR PRN 08/25/18 [History Confirmed 08/25/18] Ibuprofen TAB* [Advil TAB*] 200 - 400 mg PO Q6H PRN 08/25/18 [History Confirmed 08/25/18] Magnesium Hydroxide LIQ* [Milk of Magnesia LIQ*] 30 ml PO DAILY PRN 08/25/18 [ History Confirmed 08/25/18] Melatonin (NF) 3 mg PO BEDTIME 08/25/18 [History Confirmed 08/25/18] Multivitamins/Minerals TAB* [Theragran/minerals TAB*] 1 tab PO DAILY 08/25/18 [ History Confirmed 08/25/18] Nicotine Lozenge* 12 mg PO QID PRN 08/25/18 [History Confirmed 08/25/18] OLANzapine TAB* [Zyprexa 10 MG TAB*] 10 mg PO BEDTIME 08/25/18 [History Confirmed 08/25/18] Omeprazole (Nf) [Prilosec (NF)] 40 mg PO DAILY 08/25/18 [History Confirmed 08/25] Polyethylene Glycol 3350* [Miralax*] 17 gm PO DAILY PRN 08/25/18 [History Confirmed 08/25/18] Saline NASAL SPRAY 0.65%* [Sodium Chloride 0.65% Nasal [place]*] 1 - 2 spray BOTH NARES Q4H PRN 08/25/18 [History Confirmed 08/25/18] diphenhydrAMINE HCl [Diphenhist] 50 mg PO DAILY PRN 08/25/18 [History Confirmed 08/25/18] guaiFENesin ER TAB [Mucinex*] 600 - 1,200 mg PO BID PRN 08/25/18 [History Confirmed 08/25/18] PMH/Surg Hx/FS Hx/Imm Hx Previously Healthy: No Cardiovascular History: Reports: Hx Pacemaker/ICD History: Reports: Hx Kidney Stones Sensory History: Reports: Hx Contacts or Glasses Denies: Hx Deafness, Hx Hearing Aid Opthamlomology History: Reports: Hx Contacts or Glasses Psychiatric History: Reports: Hx Substance Abuse - Surgical History Surgery Procedure, Year, and Place: none - Family History Known Family History: Positive: Hypertension - Social History Occupation: Retired Lives: Alone Alcohol Use: None Hx Substance Use: No Substance Use Type: Reports: None Substance Use Comment - Amount & Last Used: hx of opioid and meth abuse, Hx Tobacco Use: Yes Smoking Status (MU): Former Smoker Review of Systems Positive: Fever, Other - pos: dehydration. Negative: Chills Negative: Erythema Negative: Sore Throat Negative: Chest Pain Negative: Shortness Of Breath, Cough Positive: Abdominal Pain. Negative: Vomiting, Nausea Negative: dysuria, hematuria Musculoskeletal: Other - pos: back pain Negative: Edema Negative: Rash Neurological: Other - neg: dizziness All Other Systems Reviewed And Are Negative: Yes Physical Exam - Summary Physical Exam Summary: Constitutional: Well-developed, Well-nourished, Alert. (-) Distressed Skin: Warm, Dry HENT: Normocephalic; Atraumatic Eyes: Conjunctiva normal Neck: Musculoskeletal ROM normal neck. (-) JVD, (-) Stridor, (-) Tracheal deviation Cardio: Rhythm regular, rate normal, Heart sounds normal; Intact distal pulses; The pedal pulses are 2+ and symmetric. Radial pulses are 2+ and symmetric. (-) Murmur Pulmonary/Chest wall: Effort normal. (-) Respiratory distress, (-) Wheezes, (-) Rales Abd: Soft, (-) epigastric tenderness, (-) Distension, (-) Guarding, (-) Rebound ; mild bilateral CVA tenderness Musculoskeletal: (-) Edema Lymph: (-) Cervical adenopathy Neuro: Alert, Oriented x3 Psych: Mood and affect Normal Triage Information Reviewed: Yes Vital Signs Reviewed: Yes Procedures - Central Line 1 Central Line Position: internal jugular (R) Complications: Unsuccessful. 2 Central Line Position: internal jugular (L) Complications: Unsuccessful. Diagnostics - Laboratory Result Diagrams: 08/25/18 09:35 08/25/18 09:35 Lab Statement: Any lab studies that have been ordered have been reviewed, and results considered in the medical decision making process. - Radiology CXR Radiology Interpretation Completed By: Radiologist Summary of Radiographic Findings: IMPRESSION: PACEMAKER LEADS IN PLACE. QUESTION OF AIRSPACE DISEASE IN THE RIGHT MEDIAL LUNG BASE. PNEUMONIA IS NOT EXCLUDED. ED provider has reviewed this report. - CT C/A/P CT Interpretation Completed By: Radiologist Summary of CT Findings: IMPRESSION: Findings consistent with bilateral pneumonia. Pacemaker leads are in place. Stool is present throughout the colon. No abnormal masses are noted although evaluation is limited due to lack of oral and IV contrast. ED provider has reviewed this report. - EKG 0947 Cardiac Rate: NL - 82 bpm EKG Rhythm: Sinus Rhythm Summary of EKG Findings: No STEMI. T-wave flattening at V5-V6. Sepsis Re-assessment - Sepsis Re-Assessment 1 Re-Evaluation Time: 10:28 Patient's Vitals Signs: Patient's pressure is still 80 systolic. The third liter of normal saline is infusing. Discussed with patient the risks and benefits of Central Line Placement including bleeding, infection and pneumothorax. She accepted these risks. Will re-eval after fluids are complete. 2 Re-Evaluation Time: 11:15 Patient's Vitals Signs: RECTAL EXAM: Pt had melena, which she has had for 6 weeks. She denies PMHx: GI bleed. 3 Re-Evaluation Time: 11:25 Patient's Vitals Signs: Received informed consent for central line and emergency blood products. 4 Re-Evaluation Time: 12:15 Patient's Vitals Signs: BP is up to 66. Central line is in place. 5 Re-Evaluation Time: 12:32 Patient's Vitals Signs: Vital Signs Temp Pulse Resp BP Pulse Ox 08/25/18 12:31 20 08/25/18 12:17 89 16 111/68 89 08/25/18 12:02 82 15 90/59 100 08/25/18 12:00 84 19 100 08/25/18 11:47 87 18 80/63 98 08/25/18 11:34 98.5 F 08/25/18 11:32 18 75/50 08/25/18 11:17 14 84/50 08/25/18 11:03 86 22 72/45 95 08/25/18 11:01 88 23 92 08/25/18 10:41 84 19 79/52 93 08/25/18 10:26 87 15 80/56 95 08/25/18 10:12 85 14 83/56 96 08/25/18 10:11 83 18 87/50 95 08/25/18 10:00 81 18 95 08/25/18 09:58 82 18 77/50 96 08/25/18 09:56 81 18 76/47 96 08/25/18 09:41 84 13 81/51 96 08/25/18 09:39 80 15 95 08/25/18 09:22 99.9 F 108 20 77/52 91 BP is 110-120 systolic. Patient's neck is feeling better. Clinical question of placing femoral line; will consult with [employer] Supervisor. 6 Re-Evaluation Time: 12:53 Patient's Vitals Signs: Vital Signs Temp Pulse Resp BP Pulse Ox 08/25/18 12:32 85 19 117/76 86 08/25/18 12:31 20 08/25/18 12:28 84 15 114/80 80 08/25/18 12:17 89 16 111/68 89 08/25/18 12:02 82 15 90/59 100 08/25/18 12:00 84 19 100 08/25/18 11:47 87 18 80/63 98 08/25/18 11:34 98.5 F 08/25/18 11:32 18 75/50 08/25/18 11:17 14 84/50 08/25/18 11:03 86 22 72/45 95 08/25/18 11:01 88 23 92 08/25/18 10:41 84 19 79/52 93 08/25/18 10:26 87 15 80/56 95 08/25/18 10:12 85 14 83/56 96 08/25/18 10:11 83 18 87/50 95 08/25/18 10:00 81 18 95 02/14/19 09:58 82 18 77/50 96 08/25/18 09:56 81 18 76/47 96 08/25/18 09:41 84 13 81/51 96 08/25/18 09:39 80 15 95 08/25/18 09:22 99.9 F 108 20 77/52 91 BP is [address] Maher, organic search lead, will see pt in ED. Course/Dx - Course Course Of Treatment: Pt is a 63 y/o F presenting with fever and back pain onset three dags ago. Pt has known UTI and is on Macrobid. 0913: EMS called en route to give report report, patient meets sepsis criteria. EKG shows NSR, no STEMI and T-wave flattening at V5-V6. UA results are unremarkable. 0922: ED provider is at bedside upon patient arrival. 0927: IV fluids started. 0939: Pt given Rocephin. 1028: At re-eval, patient's pressure is still 80 systolic. The third liter of normal saline is infusing. Discussed with patient the risks and benefits of Central Line Placement including bleeding, infection and pneumothorax. She accepted these risks. Will re-eval after fluids are complete. 1220: Upon re-eval, pt's neck pain has improved. BP is 110-115 systolic. 1240 : Consulted with Dr. Maher, [employer] Supervisor. Clinical question to place a femoral line. Given that pts hemodynamics have improved significantly and due to infection risk, we made the joint decision to not make further attempts unless patient decompensates. Pt will be admitted. - Differential Dx/Clinical Impression Provider Diagnosis: Upper GI bleed, Septic shock, Community acquired pneumonia - Provider Notifications Discussed Care Of Patient With: Tiffanie Maher - [employer] Supervisor Time Discussed With Above Provider: 12:40 Instructed by Provider To: Other - Clinical question for femoral line. Given that pts hemodynamics have improved significantly and due to infection risk, we made the joint decision to not make further attempts unless patient decompensates. Pt will be admitted. MD will see pt in ED. - Critical Care Time Critical Care Time: 30-74 min - 60 mins critical care time Discharge - Sign-Out/Discharge Documenting (check all that apply): Patient Departure - ADMIT Patient Received Moderate/Deep Sedation with Procedure: No - Discharge Plan Disposition: ADMITTED TO [facility] Referrals: No Primary Care Phys,NOPCP [Primary Care Provider] - - Attestation Statements Document Initiated by Scribe: Yes Documenting Scribe: Cora Gómez Provider For Whom Scribe is Documenting (Include Credential): Dr. Milton Lopez MD Scribe Attestation: Cora Shine, scribed for Dr. Milton Lopez MD on 08/25/18 at 1356.
[2018-08-25 09:51] LABS: ABS Basophils 0 10^3/ul (0-0.2); ABS Eosinophils 0 10^3/ul (0-0.6); ABS Lymphocytes 0.3 10^3/ul (1.0-4.8); ABS Monocytes 0.3 10^3/ul (0-0.8); ABS Neutrophils 7.3 10^3/ul (1.5-7.7); ABS Nucleated RBC 0 10^3/ul; Eosinophil % 0.2 %; Hematocrit 26 % (35-47); Hemoglobin 8.5 g/dl (12.0-16.0); Lymphocyte % 3.7 %; Mean Corpuscular HGB Conc 33 g/dl (31-36); Mean Corpuscular Hemoglobin 30 pg (27-31); Mean Corpuscular Volume 93 fL (80-97); Nucleated Red Blood Cells % 0; Platelet Count 292 10^3/ul (150-450); Red Blood Count 2.81 10^6/ul (4.00-5.40); Red Cell Distribution Width 14 % (10.5-15)
[2018-08-25 09:59] LABS: INR 1.06 (0.77-1.02)
[2018-08-25] MEDS ORDERED: NS 0.9% 1000 ML** 1,000 ML IV ONE ×2 (10:05→11:10)
[2018-08-25 10:14] LABS: Albumin 2.8 g/dL (3.2-5.2); Albumin/Globulin Ratio 1.3 (1-3); BUN/Creatinine Ratio 26.3 (8-20); Calcium 7.8 mg/dL (8.6-10.3); EGFR African American 87.7 (>60); EGFR Non-African American 72.4 (>60); Globulin 2.2 g/dL (2-4); Potassium 3.6 mmol/L (3.5-5.0); Total Bilirubin 0.2 mg/dL (0.2-1.0)
[2018-08-25 10:15] LABS: Troponin I 0.01 ng/mL (<0.04)
[2018-08-25 10:18] LABS: Urine Appearance Clear; Urine Bilirubin Negative (Negative); Urine Blood Negative (Negative); Urine Color Yellow; Urine Glucose Negative (Negative); Urine Ketones Negative (Negative); Urine Nitrite Negative (Negative); Urine Protein Negative (Negative); Urine Specific Gravity 1.011 (1.010-1.030); Urine Urobilinogen Negative (Negative)
[2018-08-25] MEDS ORDERED: ED Azithromycn 500 mg/250 ml 500 MG/250 ML PREMIX.SET IVPB ONE (10:33)
[2018-08-25] MEDS ORDERED: Pantoprazole* 80 mg IN NS 80 MG/250 ML BAG IVPB ONE (11:17)
[2018-08-25] MEDS ORDERED: Pantoprazole IV* 40 MG IV ONE (11:26)
[2018-08-25] MEDS ORDERED: fentaNYL* 50 MCG/ML 2 ML VIAL (100 MCG VIAL) IV SLOW PU ONE (12:16)
[2018-08-25] MEDS ORDERED: Azithromycin IV* 500 MG ADVAN VIAL/BAG IVPB ONE (12:33)
--- NOTE | 2018-08-25 12:59 | HP ---
History of Present Illness - History of Present Illness Reason for Visit: dysuria and flank pain History of Present Illness: 63 yo F with PMH including pacemaker for heart block/symptomatic bradycardia, seizure disorder, bipolar disorder and polysubstance abuse. She is a current resident at [facility]. She was last hospitalized in May 2018 for a generalized tonic-clonic seziure. She presents to the ED on August 25 with complaints of dysuria and flank pain. She just completed a week course of Macrobid as an outpatient for a urinary tract infection. On evaluation in the ED she is found to be hypotensive with SBPs 70s-80s. She was bolused 3L IVF without significant improvement. She was found to have melatonic stool and was transfused PRBC with subsequent improvement in SBP to 110. CT of the chest, abdomen and pelvis was obtained which demonstrate bilateral lung infiltrates consistent with pneumonia, bilateral hydronephrosis, and constipation. She is admitted to ICU for further resuscitation and care. - Past Medical History Cardiac: Other - bradycardia or block requiring pacer Pulmonary: Asthma ARTIFICIAL FLY TIER: Seizure Gastrointestinal: Constipation Psych: Anxiety, Addictions - opiates, methamphetamine, cocaine, Bipolar, Other - ADHD Renal/: Other - problems with sodium and potassium levels Endocrine: Hypothyroidism, Osteoporosis, Other - hypoglycemia - Past Surgical History Past Surgical History: Appendectomy, Cholecystectomy, Hysterectomy - partial, Other - AICD, Tonsillectomy - Past Social History Drugs: Cocaine, Other - opiates and methamphetamine Lives: Other - inpatient detox Review of Systems - Review of Systems Constitutional: Positive: Fever, Chills, Weakness, Malaise Eyes: Negative: Pain, Vision Change, Conjunctivae Inflammation, Eyelid Inflammation, Redness, Other ENT: Negative: Ear Pain, Ear Discharge, Nose Pain, Nose Discharge, Nose Congestion, Mouth Pain, Mouth Swelling, Throat Pain, Throat Swelling, Other Respiratory: Positive: Cough Cardiovascular: Positive: Light Headedness, Other - low blood pressure Gastrointestinal: Positive: Constipation, Melena Genitourinary: Positive: Dysuria, Other - flank pain Musculoskeletal: Negative: Neck Pain, Shoulder Pain, Arm Pain, Back Pain, Hand Pain, Leg Pain, Foot Pain, Other Neurological: Positive: Weakness - Medications/Allergies Allergies/Adverse Reactions: Allergies Allergy/AdvReac Type Severity Reaction Status Date / Time acetaminophen Allergy Unknown Verified 06/05/18 03:24 [From Darvocet-N] Reaction Details codeine Allergy Unknown Verified 06/05/18 03:24 Reaction Details ketorolac [From Toradol] Allergy Unknown Verified 06/05/18 03:24 Reaction Details methadone Allergy Unknown Verified 06/05/18 03:24 Reaction Details morphine Allergy Unknown Verified 06/05/18 03:24 Reaction Details Penicillins Allergy Unknown Verified 06/05/18 03:24 Reaction Details propoxyphene Allergy Unknown Verified 06/05/18 03:24 [From Darvocet-N] Reaction Details quetiapine [From Seroquel] Allergy Unknown Verified 06/05/18 03:24 Reaction Details sumatriptan [From Imitrex] Allergy Unknown Verified 06/05/18 03:24 Reaction Details Medications: Current Medications Norepinephrine Bitartrate (Levophed 16 Mcg/Ml Premix Bag*) 4,000 mcg in 250 mls @ 18.75 mls/hr IV Q13H [facility]; Protocol Pantoprazole Sodium (Protonix Iv Bag*) 80 mg in 250 mls @ 25 mls/hr IVPB ED ONCE ONE Stop: 08/25/18 21:16 Last Admin: 08/25/18 12:38 Dose: 25 mls/hr Exam - Exam Vital Signs: Vital Signs (72 hours) 08/25/18 08/25/18 08/25/18 09:22 09:39 09:41 Temperature 99.9 F Pulse Rate 108 80 84 Respiratory 20 15 13 Rate Blood Pressure 77/52 81/51 (mmHg) O2 Sat by Pulse 91 95 96 Oximetry 08/25/18 08/25/18 08/25/18 09:56 09:58 10:00 Temperature Pulse Rate 81 82 81 Respiratory 18 18 18 Rate Blood Pressure 76/47 77/50 (mmHg) O2 Sat by Pulse 96 96 95 Oximetry 08/25/18 08/25/18 08/25/18 10:11 10:12 10:26 Temperature Pulse Rate 83 85 87 Respiratory 18 14 15 Rate Blood Pressure 87/50 83/56 80/56 (mmHg) O2 Sat by Pulse 95 96 95 Oximetry 08/25/18 08/25/18 08/25/18 10:41 11:01 11:03 Temperature Pulse Rate 84 88 86 Respiratory 19 23 22 Rate Blood Pressure 79/52 72/45 (mmHg) O2 Sat by Pulse 93 92 95 Oximetry 08/25/18 08/25/1808/25/19 11:17 11:32 11:34 Temperature 98.5 F Pulse Rate Respiratory 14 18 Rate Blood Pressure 84/50 75/50 (mmHg) O2 Sat by Pulse Oximetry 08/25/18 08/25/18 08/25/18 11:47 12:00 12:02 Temperature Pulse Rate 87 84 82 Respiratory 18 19 15 Rate Blood Pressure 80/63 90/59 (mmHg) O2 Sat by Pulse 98 100 100 Oximetry 08/25/18 08/25/18 08/25/18 12:17 12:28 12:31 Temperature Pulse Rate 89 84 Respiratory 16 15 20 Rate Blood Pressure 111/68 114/80 (mmHg) O2 Sat by Pulse 89 80 Oximetry 08/25/18 12:32 Temperature Pulse Rate 85 Respiratory 19 Rate Blood Pressure 117/76 (mmHg) O2 Sat by Pulse 86 Oximetry General: Oriented x3, Other - lethargic Lungs: Other - coarse in bases bilaterally Cardiovascular: Regular rate, Normal S1, Normal S2, No murmurs Abdomen: Soft, No tenderness Extremities: No tenderness/swelling Neurological: Other - lethargic, falling asleep during conversation Psych/Mental Status: Mood NL Assessment/Plan - Assessment/Plan Assessment: 63 yo F with PMH of polysubstance abuse in inpatient detox, recent UTI treated as outpatient with macrobid, and seizure disorder presents to the ED on August 25 with complaints of dysuria and flank pain, and cough. Work up demonstrates bilateral pneumonia and bilateral hydronephrosis. Also found to have melatonic stool. Bolused IVF, started on Protonix and PRBC transfusion and admitted to ICU for further care. Plan: Cardiovascular: (1) Septic shock; (2) hx of unstable angina; (3) chronic hypertension; (4) hx of heart block s/p pacemaker in situ; (5) hx of noncardiac chest pain -- HR 81-108 -- SBP 76-117 -- Telemetry -- Albumin ATC Home meds: ASA Pulmonary: (1) Healthcare associated (inpt detox) bilateral pneumonia; (2) Chronic asthma -- RR 13-23 -- sats 80 -100 on NC -- CXR: right basilar pneumonia -- CT chest, 08/25: bilateral pneumonia (RML, RLL, LLL) -- PRN Nicotine lozenges -- duonebs as needed -- guaifenesin as needed Home meds: Flonase, Loratadine, guaifenesin, Nicotine lozenge, Albuterol Gastrointestinal: (1) Constipation; (2) Acute GI bleed -- CT abdomen, 08/25: bilateral hydronephrosis. constipation -- LFTs within normal limits -- diet: general -- bowel regimen: Miralax, MOM -- ulcer prophylaxis: Protonix -- GI team consulted by ED Home meds: Prilosec, pepto-bismol, miralax, milk of magnesia Endocrine: (1) History of hypoglycemia; (2) Chronic hypothyroidism -- monitor BGs -- resume home synthroid Home meds: Synthroid Renal: (1) Bilateral hydronephrosis; (2) Hyponatremia; (3) chronic hypocalcemia secondary to osteoporosis; (4) hx of sodium and potassium level abnormalities -- CT abdomen, 08/25: bilateral hydronephrosis -- I/O:3780 ml in /output not recorded -- Cr 0.80 -- Lytes Na 127, start NS, follow trend K 3.6 Ca 7.8, replace Mag ordered with AM labs Phos ordered with AM labs -- consult urology -- resume home oxybutynin and calcium carbonate Home meds: Oxybutynin, Alendronate, calcium carbonate Infectious disease: (1) Sepsis; (2) Bilateral pneumonia; (3) Possible UTI -- Tmax 99.9 -- WBC 8.0 -- Micro 08/25 UA negative blood in process sputum ordered flu ordered -- ABX Rocephin Azithromycin Home meds: None Neurologic: (1) Polysubstance abuse, including opiates, cocaine and methamphetamine; (2) Seizure disorder; (3) Bipolar disorder; (4) ADHD; (5) Chronic anxiety -- resume home meds to prevent withdrawal symptoms -- resume home Keppra -- PT Home meds: Trazodone, Zoloft, Suboxone, Keppra, Benadryl, tylenol, ibuprofen, melatonin, zyprexa Hematological: (1) Acute blood loss anemia secondary to GI bleed - though (+) hemoccult could be secondary to ferrous sulfate admin -- Hgb 8.5, follow trend. received PRBC in ED -- Plt 292 -- Coags INR 1.06 PTT 30.0 -- DVT prophylaxis: SCDs, chemoprophylaxis contraindicated secondary to acute GI Bleed Home meds: Ferrous sulfate, ASA Metabolic: No acute issues -- lactic acid 1.9 Home meds: None Other: (1) Osteoporosis -- MVI -- calcium carbonate Home meds: MVI, alendronate, calcium carbonate-VitD3 Deep vein thrombosis prophylaxis: SCDs, chemoprophylaxis contraindicated secondary to acute GI Bleed Dietary: Protonix Condition: critical Prognosis: guarded Code status: full Disposition: admit to ICU Family updated at bedside regarding interval events and plan of care Cumulative time spent in the care of this patient (excluding any procedure time) : at least 55 minutes. Patient care included clinical interview (with patient and/or family), bedside exam of the patient, review of labs, x-rays, and other ancillary data, coordination of (respiratory, nursing care, review of patient's records, discussion regarding patients management with involved consultants, primary physician, pharmacists, and other healthcare personnel (dietary, case management , physical/occupational therapy etc.)
[2018-08-25] MEDS ORDERED: Albuterol/Ipratropium NEB.SOL* Albuterol 2.5 MG/Ipratropium 0.5 MG 3 ML INH PRN (13:32)
[2018-08-25] MEDS ORDERED: Magnesium Hydroxide LIQ* 30 ML UDC PO PRN (13:33)
[2018-08-25] MEDS ORDERED: Calcium Gluconate INJ* 1 GM in NS 0.9% 50 ML* 50 ML IVPB ONE (13:41)
[2018-08-25] MEDS ORDERED: Albumin Human 25%* 25 GM/100 ML BTL IV SCH (14:00)
[2018-08-25 14:03] LABS: Hematocrit 33 % (35-47); Hemoglobin 11.1 g/dl (12.0-16.0)
[2018-08-25 15:11] LABS: Influenza A Molecular NEGATIVE (Negative); Influenza B Molecular NEGATIVE (Negative)
[2018-08-25] MEDS: NS 0.9% 1000 ML** 1,000 ML IV SCH (15:43)
[2018-08-25] MEDS: Albumin Human 25%* 25 GM/100 ML BTL IV SCH ×2 (16:08→21:31)
[2018-08-25] MEDS: CMCS: Midodrine (NF) 5 MG TAB PO SCH ×2 (17:36→21:30)
[2018-08-25] MEDS: Norepinephrine 16MCG/ML IVPRE* 4,000 MCG/250 ML BAG IV SCH (20:00)
--- NOTE | 2018-08-25 20:21 | PN ---
Progress Note - Progress Note Date of Service: 08/25/18 - update Note: discussed CT findings with urology. bilateral hydronephrosis most likely due to bladder emptying issues. should resolve with jamison. check repeat US in 48 hrs to assess for resolution. study ordered.
--- NOTE | 2018-08-25 21:15 | CONS ---
CONSULTATION REPORT: DATE OF CONSULT: 08/25/18 REASON FOR CONSULT: Anemia, dark stools. HISTORY OF PRESENT ILLNESS: This is a 63-year-old female with a past medical history of seizure disorder, symptomatic bradycardia, polysubstance abuse, and bipolar who is a current resident at [facility], who presented to the emergency room with complaints of burning with urinating and initially flank pain. The patient was initially seen and examined in the emergency room. She was recently treated as an outpatient with a course of Macrobid for UTI. She states over the last 2 weeks she has seen some dark stools. She denies taking Pepto-Bismol or iron. She denies any abdominal pain. No dysphagia, no odynophagia. Denies any nausea, emesis, or hematemesis. She does admit to some dyspnea and has been quite fatigued. In the emergency room, she was found to be hypotensive, she was given boluses. Additionally, they found her hemoglobin to be 8.5. They gave her 2 units with a rise to 11.5. She was transfused 2 units of PRBCs at 8.5. She had a CT of the chest, abdomen, and pelvis which demonstrated bilateral lung infiltrate and hydronephrosis and a large stool burden. History of present illness is slightly limited by a reluctant historian, but the remainder of the 14-point review of systems was grossly negative. PAST MEDICAL HISTORY: 1. Seizure disorder. 2. Bradycardia. 3. Pacemaker placement. 4. Polysubstance abuse. 5. Bipolar. 6. Hypothyroidism. 7. Appendectomy. 8. Cholecystectomy. 9. Hysterectomy. MEDICATIONS: Home medications include: 1. Acetaminophen. 2. Albuterol. 3. Alendronate. 4. Aspirin. 5. Bismuth. 6. Suboxone. 7. Calcium. 8. Diphenhydramine. 9. Eucalyptus. 10. Fluticasone. 11. Guaifenesin. 12. Ibuprofen. 13. Levothyroxine. 14. Loratadine. 15. Milk of magnesium. 16. Melatonin. 17. Multivitamin. 18. Nicotine lozenges. 19. Olanzapine. 20. Prilosec. 21. Oxybutynin. 22. MiraLax. 23. Sertraline. 24. Trazodone. 25. Of note, ferrous sulfate is in the history, unclear if taking. ALLERGIES: Include ACETAMINOPHEN, CODEINE, TORADOL, METHADONE, MORPHINE, PENICILLIN, DARVOCET, QUETIAPINE, and SUMATRIPTAN. FAMILY HISTORY: Denies any family history of colorectal cancer or inflammatory bowel disease. SOCIAL HISTORY: Inpatient detox, polysubstance abuse with opioids, methamphetamine, cocaine. REVIEW OF SYSTEMS: Remainder of the 14-point review of systems is grossly negative. PHYSICAL EXAM: Vital Signs: When I saw her in the emergency room, blood pressure 96/60, pulse was 87, respiratory rate is 18. She was 98% on room air. General: Lethargic but alert. HEENT: Atraumatic, normocephalic. Pupils are equal, round and reactive light. Conjunctivae are pink. Sclerae anicteric. Cardiovascular: Regular rate and rhythm, S1, S2. Pulmonary: Diminished bilaterally with harsh crackles. Abdomen: Soft, nontender, nondistended. Bowel sounds positive. Positive tenderness to palpation on percussion of the bilateral flanks. Extremities: No clubbing, no cyanosis, no edema. Skin: A few scattered ecchymosis. Rectal: Exam was done with emergency room nurse in presence and revealed brown stool. No black blood was noted. DIAGNOSTIC STUDIES/LAB DATA: Hemoglobin 8.5, platelet count 292. INR 1.06. BUN is 21, creatinine 0.80. Sodium 127. Albumin 2.8. CT of the chest, abdomen , and pelvis revealed bilateral pneumonia, pacemaker leads in place, and stool present throughout the colon, bilateral hydronephrosis as well. ASSESSMENT AND PLAN: This is a 63-year-old female with anemia, hypotension, pneumonia, and bilateral hydronephrosis. 1. Anemia. The patient is occult positive. At this point, there is no gross evidence of active ongoing gastrointestinal bleeding. Given the possible history of black stool, however, the patient was on potentially both iron and Bismuth as an outpatient, but would cover with IV pantoprazole irregardless. We will plan on IV proton pump inhibitor drip, monitor the hemoglobin every 6 hours, transfuse p.r.n. to keep the hemoglobin above 7. I suspect that this clinical picture at this point seems to be more of a component of sepsis. Her baseline hemoglobin appears to be around the 9 range. She was given 2 units today and came up to 11. She certainly will need eventual endoscopic evaluation given the occult and her chronic anemia. She will benefit from eventual esophagogastroduodenoscopy and colonoscopy once more stabilized. Could be considered as an outpatient pending clinical course. We would monitor for signs of overt bleeding, keep the head of the bed elevated at about 30 degrees at all times. Again, continue the Protonix drip at this point. 2. Pneumonia and bilateral hydronephrosis: Per primary team. 3. Polysubstance abuse. [id number]/[facility] #: [id number] AGUSTINA
[2018-08-25] MEDS: Calcium Carbonate CHEW TAB* 500 MG (TUMS) PO SCH (21:28)
[2018-08-25] MEDS: traZODone TAB* 50 MG TAB PO SCH (21:29)
[2018-08-25] MEDS: Melatonin 3 MG TAB PO SCH (21:29)
[2018-08-25] MEDS: levETIRAcetam TAB* 500 MG PO SCH (21:29)
[2018-08-25] MEDS: guaiFENesin ER TAB 600 MG PO SCH (21:29)
[2018-08-25] MEDS: Polyethylene Glycol 3350* 17 GM PACKET PO SCH (21:30)
[2018-08-25] MEDS: Oxybutynin TAB* 5 MG PO SCH (21:35)
[2018-08-25] MEDS: OLANzapine TAB* 10 MG PO SCH (21:35)
[2018-08-25] MEDS: Pantoprazole* 80 mg IN NS 80 MG/250 ML BAG IVPB SCH (23:45)
[2018-08-26] MEDS: NS 0.9% 1000 ML** 1,000 ML IV SCH (03:52)
[2018-08-26] MEDS: Albumin Human 25%* 25 GM/100 ML BTL IV SCH (04:15)
[2018-08-26] MEDS: Levothyroxine TAB* 75 MCG TAB PO SCH (06:02)
[2018-08-26 07:02] LABS: Hematocrit 30 % (35-47); Hemoglobin 9.8 g/dl (12.0-16.0); Mean Corpuscular HGB Conc 33 g/dl (31-36); Mean Corpuscular Hemoglobin 31 pg (27-31); Mean Corpuscular Volume 93 fL (80-97); Platelet Count 207 10^3/ul (150-450); Red Blood Count 3.19 10^6/ul (4.00-5.40); Red Cell Distribution Width 15 % (10.5-15); White Blood Count 11.6 10^3/ul (3.5-10.8)
[2018-08-26 07:12] LABS: BUN/Creatinine Ratio 21.7 (8-20); Calcium 7.6 mg/dL (8.6-10.3); EGFR African American 122.2 (>60); Magnesium 1.6 mg/dL (1.9-2.7); Phosphorus 2.8 mg/dL (2.5-5.0); Potassium 3.8 mmol/L (3.5-5.0)
[2018-08-26] MEDS: CMCS: Midodrine (NF) 5 MG TAB PO SCH ×3 (07:25→21:12)
[2018-08-26] MEDS ORDERED: Magnesium Sulfate 2 GM IV* 2 GM/50 ML BAG IVPB ONE (08:14)
[2018-08-26] MEDS ORDERED: Buprenorp/Nalox 8-2 MG FILM 1 EACH SL FILM SCH (09:00)
[2018-08-26] MEDS ORDERED: Oxybutynin TAB* 5 MG PO SCH (09:00)
--- NOTE | 2018-08-26 09:46 | PN ---
Subjective Date of Service: 08/26/18 Interval History: HOSPITALIST PROGRESS NOTE Patient seen and examined at bedside. Care reviewed and d/w Benigno Wallace RN. She feels weak today. Cough persists, denies chest pain or palpitations. Family History: Unchanged from Admission Social History: Unchanged from Admission Past Medical History: Unchanged from Admission Objective Active Medications: Albuterol/Ipratropium (Duoneb (Albuterol 2.5 Mg/Ipratropium 0.5 Mg)) 1 neb INH Q6H PRN PRN Reason: SOB/WHEEZING Buprenorphine/Naloxone (Suboxone 8 Mg-2 Mg Sl Film) 1 each SL FILM DAILY [facility] Calcium Carbonate (Tums*) 500 mg PO BID [facility] Last Admin: 08/25/18 21:28 Dose: 500 mg Guaifenesin (Mucinex*) 600 mg PO BID [facility] Last Admin: 08/25/18 21:29 Dose: 600 mg Heparin Sodium (Porcine) (Heparin Flush Picc/Ml/Cvc(*)) 1 - 3 ml FLUSH 0600, 1800 [facility]; Protocol Last Admin: 08/26/18 06:02 Dose: 1 ml Ceftriaxone Sodium 1 gm/ (Sodium Chloride) 50 mls @ 200 mls/hr IVPB Q24H [facility] Stop: 09/01/18 08:59 Sodium Chloride (Ns 0.9% 1000 Ml) 1,000 mls @ 100 mls/hr IV PER RATE [facility] Last Admin: 08/26/18 03:52 Dose: 100 mls/hr Azithromycin 500 mg/ Sodium (Chloride) 250 mls @ 250 mls/hr IVPB Q24H [facility] Stop: 09/01/18 08:59 Pantoprazole Sodium (Protonix Iv Bag*) 80 mg in 250 mls @ 25 mls/hr IVPB Q10H [facility] Last Admin: 08/25/18 23:45 Dose: 25 mls/hr Levetiracetam (Keppra Tab*) 500 mg PO BID [facility] Last Admin: 08/25/18 21:29 Dose: 500 mg Levothyroxine Sodium (Synthroid Tab*) 75 mcg PO DAILY@0600 [facility] Last Admin: 08/26/18 06:02 Dose: 75 mcg Magnesium Hydroxide (Milk Of Magnesia Liq*) 30 ml PO Q6H PRN PRN Reason: CONSTIPATION Melatonin (Melatonin) 3 mg PO BEDTIME [facility]; Protocol Last Admin: 08/25/18 21:29 Dose: 3 mg Midodrine (Midodrine (Nf)) 10 mg PO Q8HR [facility]; Protocol Last Admin: 08/26/18 07:25 Dose: 10 mg Multivitamins/Minerals (Theragran/Minerals Tab*) 1 tab PO DAILY [facility] Nicotine Polacrilex (Nicotine Lozenge*) 4 mg MT Q2H PRN PRN Reason: CRAVINGS Olanzapine (Zyprexa Tab*) 10 mg PO BEDTIME [facility] Last Admin: 08/25/18 21:35 Dose: 10 mg Oxybutynin Chloride (Ditropan Tab*) 10 mg PO BID [facility] Last Admin: 08/25/18 21:35 Dose: 10 mg Polyethylene Glycol/Electrolytes (Miralax*) 17 gm PO 0800,2100 [facility] Last Admin: 08/25/18 21:30 Dose: 17 gm Sertraline HCl (Zoloft*) 150 mg PO DAILY [facility] Trazodone HCl (Desyrel Tab*) 150 mg PO BEDTIME [facility] Last Admin: 08/25/18 21:29 Dose: 150 mg Vital Signs - 8 hr 08/26/18 07:55 Respiratory 16 Rate Oxygen Devices in Use Now: Nasal Cannula - 3 liters Appearance: Elderly lady, appears older than stated age, lying in bed in NAD. Eyes: No Scleral Icterus Ears/Nose/Mouth/Throat: Mucous Membranes Moist Neck: Trachea Midline Respiratory: Symmetrical Chest Expansion and Respiratory Effort, - - BS+ bilaterally coarse, no added sounds Cardiovascular: RRR - Normal S1 and S2, +SM Abdominal: NL Sounds; No Tenderness; No Distention Neurological: Alert and Oriented x 3, NL Muscle Strength and Tone Result Diagrams: 08/26/18 06:25 08/26/18 06:25 Assess/Plan/Problems-Billing Assessment: Mrs Finnegan is a 63yo F with PMH of s/p pacemaker for heart block, asthma, HTN , hypothyroidism, GERD, seizure disorder, bipolar disorder, PSA currently at [place], who presented to ED on 08/25/18 with c/o dysuria and flank pain, found to have melanotic stool. Admitted to ICU with diagnosis of septic shock secondary to pneumonia, and possible GI bleed. Transferred to medical floor on 08/25/18. - Patient Problems (1) Septic shock Comment: - Present on admission. - Source was pneumonia. - Resolved. (2) Pneumonia Comment: - Influenza is negative. Blood cultures show no growth so far. - Check Legionella and pneumococcal Ag. - Continue Ceftriaxone and Zithromax. (3) GI bleed Comment: - Stool for occult blood was positive. - Continue PPI. - Plan for EGD when pneumonia improved (in vs outpatient). (4) Anemia Comment: - Check anemia w/u. - Monitor H/H. (5) Hydronephrosis Comment: - For renal US tomorrow. (6) UTI (urinary tract infection) Comment: - Recently completed course of Macrobid - UA is negative at this time. (7) Polysubstance abuse Comment: - Continue Suboxone. (8) DVT prophylaxis Comment: - Pharmacological prophylaxis contraindicated in the setting of possible GI bleed. - SCDs. (9) Full code status Status and Disposition: Inpatient.
[2018-08-26] MEDS ORDERED: Albumin Human 25%* 25 GM/100 ML BTL IV SCH (10:00)
[2018-08-26] MEDS: Pantoprazole* 80 mg IN NS 80 MG/250 ML BAG IVPB SCH (10:09)
[2018-08-26] MEDS: Multivitamins/Minerals TAB PO SCH (10:27)
[2018-08-26] MEDS: Oxybutynin TAB* 5 MG PO SCH ×2 (10:27→21:08)
[2018-08-26] MEDS: levETIRAcetam TAB* 500 MG PO SCH ×2 (10:27→21:07)
[2018-08-26] MEDS: Sertraline* 50 MG TAB PO SCH (10:27)
[2018-08-26] MEDS: Pantoprazole IV* 40 MG IV SCH ×2 (10:28→21:09)
[2018-08-26] MEDS: Calcium Carbonate CHEW TAB* 500 MG (TUMS) PO SCH ×2 (10:28→21:07)
[2018-08-26] MEDS: guaiFENesin ER TAB 600 MG PO SCH ×2 (10:28→21:07)
[2018-08-26] MEDS: Nicotine Lozenge* 4 MG LOZENGE MT PRN ×5 (10:43→23:04)
[2018-08-26] MEDS: cefTRIAXone(*) 1 GM in NS 0.9% 50 ML* 50 ML IVPB SCH (10:57)
[2018-08-26] MEDS: Polyethylene Glycol 3350* 17 GM PACKET PO SCH ×2 (10:57→21:09)
[2018-08-26] MEDS: Azithromycin IV(*) 500 MG in NS 0.9% 250 ML* 250 ML IVPB SCH (12:05)
[2018-08-26] MEDS: Norepinephrine 16MCG/ML IVPRE* 4,000 MCG/250 ML BAG IV SCH (12:09)
--- NOTE | 2018-08-26 17:22 | ECHO ---
Patient: HOANG DICKERSON [facility] Rec#: [id number] : 1955 Date: 08/26/2018 Age: 63y Height: 152 cm / 59.8 in Weight: 60.1 kg / 132.5 lbs Sex: F BSA: 1.6 Room#: [facility] Admit Date#: 08/25/2018 Type: Inpatient Referring: Jaimie Worley MD Reading: Milton Ríos DO Back Filler Operator: Angelika Woodruff RN RDCS Transthoracic Echocardiogram Indication: Murmur BP: 110/62 HR: 71 Rhythm: NSR Findings History: Pacemaker, bipolar disorder, polysubstance abuse, thyroid disease, seizure disorder, anemia Technical Comments: The study quality is fair. Completed at 1625. Left Ventricle: The left ventricular chamber size is normal. Global left ventricular wall motion and contractility are within normal limits. Left ventricular systolic function is at the lower limits of normal. The estimated ejection fraction is 50-55%. Abnormal left ventricular diastolic function is observed. Left Atrium: The left atrium is moderately dilated. Right Ventricle: The right ventricular chamber size and systolic function are within normal limits. A pacemaker wire is visualized in the right ventricle. Right Atrium: The right atrium is mildly dilated. A pacemaker wire is visualized in the right atrium. Aortic Valve: The aortic valve is trileaflet. The aortic valve leaflets are mildly thickened. There is mild aortic regurgitation. There is no evidence of aortic stenosis. Mitral Valve: The mitral valve leaflets are mildly thickened. There is a trace of mitral regurgitation. There is no evidence of mitral stenosis. Tricuspid Valve: The tricuspid valve leaflets are normal. There is moderate to severe tricuspid regurgitation. No pulmonary hypertension is noted. There is no tricuspid stenosis. Pulmonic Valve: The pulmonic valve appears normal. There is trace to mild pulmonic regurgitation. There is no pulmonic stenosis. Pericardium: There is no significant pericardial effusion. Aorta: There is no dilatation of the ascending aorta. There is no dilatation of the aortic arch. There is no dilation of the aortic root. Pulmonary Artery: The main pulmonary artery is not well visualized. Venous: The inferior vena cava appears normal in size. There is less than 50% respiratory change in the inferior vena cava dimension. Conclusions The left ventricular chamber size is normal. Left ventricular systolic function is at the lower limits of normal. The estimated ejection fraction is 50-55%. The left atrium is moderately dilated. The right ventricular chamber size and systolic function are within normal limits. A pacemaker wire is visualized in the right ventricle. The right atrium is mildly dilated. A pacemaker wire is visualized in the right atrium. There is moderate to severe centrally directed tricuspid regurgitation. The mechanism is not well appreciated. Based on review of chest x-ray, it may be due to excess atrial lead present that is looped and interfering with tricuspid valve closure. Comparison to a pre device placement echo would be helpful No pulmonary hypertension is noted. None prior for comparison at time of interpretation Measurements Name Value Normal Range RVDdMajor (2D) 3.2 cm (2.2 - 4.4) RAd ISD 4CH 5.5 cm (3.4 - 4.9) RA (A4C)W 3.9 cm (2.9 - 4.6) IVSd (2D) 1 cm (0.6 - 1) LVPWd (2D) 0.9 cm (0.6 - 1) LVIDd (2D) 3.8 cm (3.6 - 5.4) LVIDs (2D) 2.8 cm - LV FS (2D) 18 % (25 - 45) Aortic Annulus 1.6 cm (1.4 - 2.6) Ao root diameter (2D) 3.5 cm (2.1 - 3.5) Ascending Ao 3.5 cm (2.1 - 3.4) Aortic arch 2.7 cm (1.8 - 3.4) LA dimension (AP) 2D 4 cm (2.3 - 3.8) LAd ISD 4CH 6 cm (2.9 - 5.3) LA ISD 4CH W 4.5 cm (2.5 - 4.5) Name Value Normal Range LA ESV BP (A/L) index 46 ml/m2 - Name Value Normal Range MV E-wave Vmax 0.98 m/sec - MV deceleration time 229 msec - MV A-wave Vmax 0.95 m/sec - MV E:A ratio 1 ratio - LV septal e' Vmax 0.05 m/sec - LV lateral e' Vmax 0.08 m/sec - LV E:e' septal ratio 19.6 ratio - LV E:e' lateral ratio 12.3 ratio - Name Value Normal Range AV Vmax 1.3 m/sec - AV VTI 33 cm - AV peak gradient 7 mmHg - AV mean gradient 3 mmHg - LVOT Vmax 0.83 m/sec - LVOT VTI 19.4 cm - LVOT peak gradient 3 mmHg - LVOT mean gradient 1 mmHg - STEPHANIE Vmax 0.65 m/sec - Name Value Normal Range TR Vmax 2.6 m/sec - TR peak gradient 27 mmHg - RAP 8 mmHg - RVSP 35 mmHg - IVC diameter 1.8 cm - Name Value Normal Range PV Vmax 0.97 m/sec -
[2018-08-26] MEDS ORDERED: NS 0.9% 1000 ML** 1,000 ML IV SCH (18:48)
[2018-08-26] MEDS: Melatonin 3 MG TAB PO SCH (21:07)
[2018-08-26] MEDS: traZODone TAB* 50 MG TAB PO SCH (21:09)
[2018-08-26] MEDS: OLANzapine TAB* 10 MG PO SCH (21:12)
[2018-08-26] MEDS: Buprenorp/Nalox 8-2 MG FILM 1 EACH SL FILM SCH (23:04)
[2018-08-27] MEDS: Levothyroxine TAB* 75 MCG TAB PO SCH (06:54)
[2018-08-27] MEDS: CMCS: Midodrine (NF) 5 MG TAB PO SCH ×3 (06:54→22:34)
[2018-08-27 07:41] LABS: Hematocrit 29 % (35-47); Hemoglobin 9.8 g/dl (12.0-16.0); Mean Corpuscular HGB Conc 33 g/dl (31-36); Mean Corpuscular Hemoglobin 31 pg (27-31); Mean Corpuscular Volume 93 fL (80-97); Mean Platelet Volume 7.2 fL (7.4-10.4); Platelet Count 242 10^3/ul (150-450); Red Blood Count 3.17 10^6/ul (4.00-5.40); Red Cell Distribution Width 15 % (10.5-15); White Blood Count 9.4 10^3/ul (3.5-10.8)
[2018-08-27 07:59] LABS: % Iron Saturation 11 % (15-55); Anion Gap 5 mmol/L (2-11); BUN/Creatinine Ratio 16.7 (8-20); Blood Urea Nitrogen 10 mg/dL (6-24); CO2 Carbon Dioxide 22 mmol/L (22-32); Calcium 7.9 mg/dL (8.6-10.3); Chloride 111 mmol/L (101-111); EGFR African American 122.2 (>60); Glucose 103 mg/dL (70-100); Iron 23 ug/dL (50-212); Phosphorus 2.7 mg/dL (2.5-5.0); Sodium 138 mmol/L (135-145); Total Iron Binding Capacity 209 mcg/dL (250-450); Transferrin 149 mg/dL (203-362)
[2018-08-27] MEDS: cefTRIAXone(*) 1 GM in NS 0.9% 50 ML* 50 ML IVPB SCH (08:18)
[2018-08-27 08:21] LABS: Ferritin 73.4 ng/mL (11-307)
[2018-08-27] MEDS: Sertraline* 50 MG TAB PO SCH (08:22)
[2018-08-27] MEDS: Calcium Carbonate CHEW TAB* 500 MG (TUMS) PO SCH ×2 (08:22→22:30)
[2018-08-27] MEDS: levETIRAcetam TAB* 500 MG PO SCH ×2 (08:22→22:30)
[2018-08-27] MEDS: Multivitamins/Minerals TAB PO SCH (08:23)
[2018-08-27] MEDS: guaiFENesin ER TAB 600 MG PO SCH ×2 (08:23→22:30)
[2018-08-27] MEDS: Buprenorp/Nalox 8-2 MG FILM 1 EACH SL FILM SCH ×2 (08:24→22:30)
[2018-08-27] MEDS: Oxybutynin TAB* 5 MG PO SCH ×2 (08:24→22:31)
[2018-08-27 08:25] LABS: Folate 3.19 ng/mL (>3.99)
[2018-08-27] MEDS: Nicotine Lozenge* 4 MG LOZENGE MT PRN ×6 (08:27→22:35)
[2018-08-27] MEDS: Polyethylene Glycol 3350* 17 GM PACKET PO SCH ×2 (08:28→22:31)
[2018-08-27] MEDS: Azithromycin IV(*) 500 MG in NS 0.9% 250 ML* 250 ML IVPB SCH (10:10)
[2018-08-27] MEDS: Pantoprazole IV* 40 MG IV SCH ×2 (10:12→22:31)
[2018-08-27] MEDS: Ferrous Sulfate TAB* 325 MG PO SCH (10:15)
--- NOTE | 2018-08-27 17:55 | PN ---
Subjective Date of Service: 08/27/18 Interval History: HOSPITALIST PROGRESS NOTE Patient seen and examined at bedside. Care reviewed and d/w Benigno Wallace RN. She feels a little better today. Dyspnea is less intense; major complaint is productive with "nasty brown stuff". Family History: Unchanged from Admission Social History: Unchanged from Admission Past Medical History: Unchanged from Admission Objective Active Medications: Albuterol/Ipratropium (Duoneb (Albuterol 2.5 Mg/Ipratropium 0.5 Mg)) 1 neb INH Q6H PRN PRN Reason: SOB/WHEEZING Buprenorphine/Naloxone (Suboxone 8 Mg-2 Mg Sl Film) 1 each SL FILM BID [facility] Last Admin: 08/27/18 08:24 Dose: 1 each Calcium Carbonate (Tums*) 500 mg PO BID [facility] Last Admin: 08/27/18 08:22 Dose: 500 mg Ferrous Sulfate (Ferrous Sulfate Tab*) 325 mg PO DAILY [facility] Last Admin: 08/27/18 10:15 Dose: 325 mg Guaifenesin (Mucinex*) 600 mg PO BID [facility] Last Admin: 08/27/18 08:23 Dose: 600 mg Heparin Sodium (Porcine) (Heparin Flush Picc/Ml/Cvc(*)) 1 - 3 ml FLUSH 0600, 1800 [facility]; Protocol Last Admin: 08/27/18 06:53 Dose: 1 ml Ceftriaxone Sodium 1 gm/ (Sodium Chloride) 50 mls @ 200 mls/hr IVPB Q24H [facility] Stop: 09/01/18 08:59 Last Admin: 08/27/18 08:18 Dose: 200 mls/hr Azithromycin 500 mg/ Sodium (Chloride) 250 mls @ 250 mls/hr IVPB Q24H [facility] Stop: 09/01/18 08:59 Last Admin: 08/27/18 10:10 Dose: 250 mls/hr Levetiracetam (Keppra Tab*) 500 mg PO BID [facility] Last Admin: 08/27/18 08:22 Dose: 500 mg Levothyroxine Sodium (Synthroid Tab*) 75 mcg PO DAILY@0600 [facility] Last Admin: 08/27/18 06:54 Dose: 75 mcg Magnesium Hydroxide (Milk Of Magnesia Liq*) 30 ml PO Q6H PRN PRN Reason: CONSTIPATION Melatonin (Melatonin) 3 mg PO BEDTIME [facility]; Protocol Last Admin: 08/26/18 21:07 Dose: 3 mg Midodrine (Midodrine (Nf)) 10 mg PO Q8HR [facility]; Protocol Last Admin: 08/27/18 13:45 Dose: 10 mg Multivitamins/Minerals (Theragran/Minerals Tab*) 1 tab PO DAILY [facility] Last Admin: 08/27/18 08:23 Dose: 1 tab Nicotine Polacrilex (Nicotine Lozenge*) 4 mg MT Q2H PRN PRN Reason: CRAVINGS Last Admin: 08/27/18 16:52 Dose: 4 mg Olanzapine (Zyprexa Tab*) 10 mg PO BEDTIME [facility] Last Admin: 08/26/18 21:12 Dose: 10 mg Oxybutynin Chloride (Ditropan Tab*) 10 mg PO BID [facility] Last Admin: 08/27/18 08:24 Dose: 10 mg Pantoprazole Sodium (Protonix Iv*) 40 mg IV Q12H [facility] Last Admin: 08/27/18 10:12 Dose: 40 mg Polyethylene Glycol/Electrolytes (Miralax*) 17 gm PO 0800,2100 [facility] Last Admin: 08/27/18 08:28 Dose: 17 gm Sertraline HCl (Zoloft*) 150 mg PO DAILY [facility] Last Admin: 08/27/18 08:22 Dose: 150 mg Trazodone HCl (Desyrel Tab*) 150 mg PO BEDTIME [facility] Last Admin: 08/26/18 21:09 Dose: 150 mg Vital Signs - 8 hr 08/27/18 10:56 Temperature 97.3 F Pulse Rate 72 Respiratory 18 Rate Blood Pressure 107/66 (mmHg) O2 Sat by Pulse 97 Oximetry Oxygen Devices in Use Now: Nasal Cannula - 1.5 liters Appearance: Elderly lady, appears older than stated age, sitting up in bed in NAD. Eyes: No Scleral Icterus Ears/Nose/Mouth/Throat: Mucous Membranes Moist Neck: Trachea Midline Respiratory: Symmetrical Chest Expansion and Respiratory Effort, - - BS+ bilaterally coarse with no added sounds Cardiovascular: RRR - Normal S1 and S2, +SM Abdominal: NL Sounds; No Tenderness; No Distention Neurological: Alert and Oriented x 3, NL Muscle Strength and Tone Result Diagrams: 08/27/18 07:00 08/27/18 07:00 Assess/Plan/Problems-Billing Assessment: Mrs Long Bottom is a 63yo F with PMH of s/p pacemaker for heart block, asthma, HTN , hypothyroidism, GERD, seizure disorder, bipolar disorder, PSA currently at [facility], who presented to ED on 08/25/18 with c/o dysuria and flank pain, found to have melanotic stool. Admitted to ICU with diagnosis of septic shock secondary to pneumonia, and possible GI bleed. Transferred to medical floor on 08/25/18. - Patient Problems (1) Septic shock Comment: - Present on admission. - Source was pneumonia. - Resolved. (2) Pneumonia Comment: - Influenza is negative. Blood cultures show no growth so far. - Legionella and pneumococcal Ag. - Continue Ceftriaxone and Zithromax. (3) GI bleed Comment: - Stool for occult blood was positive. - Continue PPI. - Plan for EGD when pneumonia improved (in vs outpatient). (4) Anemia Comment: - W/u compatible with YAAKOV - start Ferrous sulfate. - H/H remains stable. (5) Hydronephrosis Comment: - Renal US shows resolution of right sided hydro; left side still has moderate hydro. Patient really wants to have her Dunlap removed so she can move more. Will d/c Dunlap and give trial of spontaneous void - would repeat US in 48h. If hydro worsens may sheldon to be discharged with Dunlap as Urology thought she could have bladder emptying issues. (6) UTI (urinary tract infection) Comment: - Recently completed course of Macrobid - UA is negative at this time. (7) Polysubstance abuse Comment: - Continue Suboxone. (8) DVT prophylaxis Comment: - Pharmacological prophylaxis contraindicated in the setting of possible GI bleed. - SCDs. (9) Full code status Status and Disposition: Inpatient.
[2018-08-27] MEDS: Melatonin 3 MG TAB PO SCH (22:30)
[2018-08-27] MEDS: traZODone TAB* 50 MG TAB PO SCH (22:31)
[2018-08-27] MEDS: OLANzapine TAB* 10 MG PO SCH (22:35)
[2018-08-28] MEDS ORDERED: Sodium Phosphate ADULT ENEMA* 118 ml bottle PR PRN (02:37)
[2018-08-28] MEDS: Levothyroxine TAB* 75 MCG TAB PO SCH (05:51)
[2018-08-28] MEDS: CMCS: Midodrine (NF) 5 MG TAB PO SCH ×3 (05:51→21:50)
[2018-08-28] MEDS: Polyethylene Glycol 3350* 17 GM PACKET PO SCH ×2 (08:53→21:42)
[2018-08-28] MEDS: Buprenorp/Nalox 8-2 MG FILM 1 EACH SL FILM SCH ×2 (08:55→21:42)
[2018-08-28] MEDS: Nicotine Lozenge* 4 MG LOZENGE MT PRN ×7 (08:56→23:59)
[2018-08-28] MEDS: Calcium Carbonate CHEW TAB* 500 MG (TUMS) PO SCH ×2 (08:56→21:42)
[2018-08-28] MEDS: Ferrous Sulfate TAB* 325 MG PO SCH (08:56)
[2018-08-28] MEDS: Sertraline* 50 MG TAB PO SCH (08:56)
[2018-08-28] MEDS: Oxybutynin TAB* 5 MG PO SCH ×2 (08:57→21:40)
[2018-08-28] MEDS: Multivitamins/Minerals TAB PO SCH (08:57)
[2018-08-28] MEDS: levETIRAcetam TAB* 500 MG PO SCH ×2 (08:57→21:41)
[2018-08-28] MEDS: guaiFENesin ER TAB 600 MG PO SCH ×2 (08:58→21:41)
[2018-08-28] MEDS: cefTRIAXone(*) 1 GM in NS 0.9% 50 ML* 50 ML IVPB SCH (08:58)
[2018-08-28] MEDS: Azithromycin IV(*) 500 MG in NS 0.9% 250 ML* 250 ML IVPB SCH (10:06)
[2018-08-28] MEDS: Pantoprazole IV* 40 MG IV SCH ×2 (11:26→21:45)
[2018-08-28] MEDS: Acetaminophen TAB* 325 MG PO PRN ×2 (11:54→18:11)
--- NOTE | 2018-08-28 17:20 | PN ---
Subjective Date of Service: 08/28/18 Interval History: Reports still being sob Family History: Unchanged from Admission Social History: Unchanged from Admission Past Medical History: Unchanged from Admission Objective Active Medications: Acetaminophen (Tylenol Tab*) 650 mg PO Q6H PRN PRN Reason: HEADACHE/PAIN Last Admin: 08/28/18 11:54 Dose: 650 mg Albuterol/Ipratropium (Duoneb (Albuterol 2.5 Mg/Ipratropium 0.5 Mg)) 1 neb INH Q6H PRN PRN Reason: SOB/WHEEZING Buprenorphine/Naloxone (Suboxone 8 Mg-2 Mg Sl Film) 1 each SL FILM BID [facility] Last Admin: 08/28/18 08:55 Dose: 1 each Calcium Carbonate (Tums*) 500 mg PO BID [facility] Last Admin: 08/28/18 08:56 Dose: 500 mg Ferrous Sulfate (Ferrous Sulfate Tab*) 325 mg PO DAILY [facility] Last Admin: 08/28/18 08:56 Dose: 325 mg Guaifenesin (Mucinex*) 600 mg PO BID [facility] Last Admin: 08/28/18 08:58 Dose: 600 mg Heparin Sodium (Porcine) (Heparin Flush Picc/Ml/Cvc(*)) 1 - 3 ml FLUSH 0600, 1800 [facility]; Protocol Last Admin: 08/28/18 05:50 Dose: 1 ml Ceftriaxone Sodium 1 gm/ (Sodium Chloride) 50 mls @ 200 mls/hr IVPB Q24H [facility] Stop: 09/01/18 08:59 Last Admin: 08/28/18 08:58 Dose: 200 mls/hr Azithromycin 500 mg/ Sodium (Chloride) 250 mls @ 250 mls/hr IVPB Q24H [facility] Stop: 09/01/18 08:59 Last Admin: 08/28/18 10:06 Dose: 250 mls/hr Levetiracetam (Keppra Tab*) 500 mg PO BID [facility] Last Admin: 08/28/18 08:57 Dose: 500 mg Levothyroxine Sodium (Synthroid Tab*) 75 mcg PO DAILY@0600 [facility] Last Admin: 08/28/18 05:51 Dose: 75 mcg Magnesium Hydroxide (Milk Of Magnesia Liq*) 30 ml PO Q6H PRN PRN Reason: CONSTIPATION Melatonin (Melatonin) 3 mg PO BEDTIME [facility]; Protocol Last Admin: 08/27/18 22:30 Dose: 3 mg Midodrine (Midodrine (Nf)) 10 mg PO Q8HR [facility]; Protocol Last Admin: 08/28/18 13:29 Dose: 10 mg Multivitamins/Minerals (Theragran/Minerals Tab*) 1 tab PO DAILY [facility] Last Admin: 08/28/18 08:57 Dose: 1 tab Nicotine Polacrilex (Nicotine Lozenge*) 4 mg MT Q2H PRN PRN Reason: CRAVINGS Last Admin: 08/28/18 13:34 Dose: 4 mg Olanzapine (Zyprexa Tab*) 10 mg PO BEDTIME [facility] Last Admin: 08/27/18 22:35 Dose: 10 mg Oxybutynin Chloride (Ditropan Tab*) 10 mg PO BID [facility] Last Admin: 08/28/18 08:57 Dose: 10 mg Pantoprazole Sodium (Protonix Iv*) 40 mg IV Q12H [facility] Last Admin: 08/28/18 11:26 Dose: 40 mg Polyethylene Glycol/Electrolytes (Miralax*) 17 gm PO 0800,2100 [facility] Last Admin: 08/28/18 08:53 Dose: 17 gm Sertraline HCl (Zoloft*) 150 mg PO DAILY [facility] Last Admin: 08/28/18 08:56 Dose: 150 mg Sodium Biphosphate/Sodium Phosphate (Fleet Enema*) 1 bottle [place] DAILY PRN PRN Reason: CONSTIPATION Trazodone HCl (Desyrel Tab*) 150 mg PO BEDTIME [facility] Last Admin: 08/27/18 22:31 Dose: 150 mg Oxygen Devices in Use Now: Nasal Cannula Eyes: No Scleral Icterus Ears/Nose/Mouth/Throat: NL Teeth, Lips, Gums Neck: NL Appearance and Movements; NL JVP Respiratory: Symmetrical Chest Expansion and Respiratory Effort Cardiovascular: NL Sounds; No Murmurs; No JVD Abdominal: NL Sounds; No Tenderness; No Distention Skin: No Rash or Ulcers Neurological: Alert and Oriented x 3 Result Diagrams: 08/27/18 07:00 08/27/18 07:00 Microbiology and Other Data: Microbiology 08/25/18 09:35 Aerobic Blood Culture - Preliminary Blood Venous No Growth Day 1 Anaerobic Blood Culture - Preliminary No Growth Day 1 08/25/18 15:45 Transfusion Reaction Gram Stain - Final Blood Bag 08/25/18 15:45 Transfusion Reaction Gram Stain - Final Blood Bag 08/25/18 14:10 Nasal Screen MRSA (PCR) - Final Nasal Mrsa Not Detected 08/25/18 14:10 Influenza Types A,B Antigen - Final Nasal Specimen received for Influenza A/B Molecular testing 08/25/18 11:16 Stool Occult Blood (TIFFANY) - Final Stool Assess/Plan/Problems-Billing Assessment: Mrs Finnegan is a 63yo F with PMH of s/p pacemaker for heart block, asthma, HTN , hypothyroidism, GERD, seizure disorder, bipolar disorder, PSA currently at [facility], who presented to ED on 08/25/18 with c/o dysuria and flank pain, found to have melanotic stool. Admitted to ICU with diagnosis of septic shock secondary to pneumonia, and possible GI bleed. Transferred to medical floor on 08/25/18. - Patient Problems (1) Pneumonia Current Visit: Yes Status: Acute Code(s): J18.9 - PNEUMONIA, UNSPECIFIED ORGANISM SNOMED Code(s): 436292635 Comment: - Influenza is negative. Blood cultures show no growth so far. - Legionella and pneumococcal Ag. - Continue Ceftriaxone and Zithromax -If no improvement,consider switching to Vanco Zosyn for HCAP coverage (2) DVT prophylaxis Current Visit: Yes Status: Acute Code(s): AVQ4747 - SNOMED Code(s): 454916099 Comment: - Pharmacological prophylaxis contraindicated in the setting of possible GI bleed. - SCDs. (3) Full code status Current Visit: Yes Status: Acute Code(s): Z78.9 - OTHER SPECIFIED HEALTH STATUS SNOMED Code(s): 905481273 (4) GI bleed Current Visit: Yes Status: Acute Code(s): K92.2 - GASTROINTESTINAL HEMORRHAGE, UNSPECIFIED SNOMED Code(s): 42066648 Comment: - Stool for occult blood was positive -Seen by Dr Echevarria - Continue PPI. - Plan for scope when pneumonia improved (in vs outpatient). (5) Hydronephrosis Current Visit: Yes Status: Acute Code(s): N13.30 - UNSPECIFIED HYDRONEPHROSIS SNOMED Code(s): 86534251 Comment: - Renal US shows resolution of right sided hydro; left side still has moderate hydro. Patient really wanted to have her Dunlap removed so she can move more. Dunlap d/c ed yesterday and trial of spontaneous void - would repeat US in a day. If hydro worsens may sheldon to be discharged with Dunlap as Urology thought she could have bladder emptying issues.Initially Dr Maher discussed with urology. (6) Polysubstance abuse Current Visit: Yes Status: Acute Code(s): F19.10 - OTHER PSYCHOACTIVE SUBSTANCE ABUSE, UNCOMPLICATED SNOMED Code(s): 081025654 Comment: - Continue Suboxone. (7) UTI (urinary tract infection) Current Visit: Yes Status: Acute Comment: - Recently completed course of Macrobid - UA is negative at this time. (8) Anemia Current Visit: Yes Status: Acute Code(s): D64.9 - ANEMIA, UNSPECIFIED SNOMED Code(s): 842719784 Comment: - W/u compatible with YAAKOV - start Ferrous sulfate. - H/H remains stable. Status and Disposition: Inpatient.
[2018-08-28] MEDS: traZODone TAB* 50 MG TAB PO SCH (21:40)
[2018-08-28] MEDS: Melatonin 3 MG TAB PO SCH (21:41)
[2018-08-28] MEDS: OLANzapine TAB* 10 MG PO SCH (21:52)
[2018-08-29] MEDS: Levothyroxine TAB* 75 MCG TAB PO SCH (06:10)
[2018-08-29] MEDS: Nicotine Lozenge* 4 MG LOZENGE MT PRN ×7 (06:10→22:31)
[2018-08-29] MEDS: CMCS: Midodrine (NF) 5 MG TAB PO SCH ×3 (06:10→20:12)
[2018-08-29 06:48] LABS: ABS Basophils 0.1 10^3/ul (0-0.2); ABS Eosinophils 0.5 10^3/ul (0-0.6); ABS Lymphocytes 2.3 10^3/ul (1.0-4.8); ABS Monocytes 0.7 10^3/ul (0-0.8); ABS Neutrophils 2.6 10^3/ul (1.5-7.7); ABS Nucleated RBC 0 10^3/ul; Eosinophil % 7.5 %; Hematocrit 33 % (35-47); Hemoglobin 10.9 g/dl (12.0-16.0); Lymphocyte % 37.8 %; Mean Corpuscular HGB Conc 33 g/dl (31-36); Mean Corpuscular Hemoglobin 31 pg (27-31); Mean Corpuscular Volume 92 fL (80-97); Mean Platelet Volume 7.2 fL (7.4-10.4); Nucleated Red Blood Cells % 0.1; Platelet Count 292 10^3/ul (150-450); Red Blood Count 3.57 10^6/ul (4.00-5.40); Red Cell Distribution Width 14 % (10.5-15); White Blood Count 6.2 10^3/ul (3.5-10.8)
[2018-08-29 07:05] LABS: Calcium 8.6 mg/dL (8.6-10.3); EGFR African American 150.8 (>60); EGFR Non-African American 124.6 (>60); Potassium 4.8 mmol/L (3.5-5.0)
[2018-08-29] MEDS: Acetaminophen TAB* 325 MG PO PRN ×2 (07:24→19:20)
--- NOTE | 2018-08-29 08:09 | PN ---
Subjective Date of Service: 08/29/18 Interval History: HD # 4 on 08/29/18 63 yo F PMH heart block s/p PPM, PSA and OUD on MAT at [facility], asthma, HTN, hypothyroid, mood d/o and seizure d/o NOS, who presented 08/25 with fever, flank pain, found to have PNA with E Coli/Kleb, Staph sputum, sepsis and +FOBT with melanotic stool. Initially admitted to ICU, xfer on 08/25, hospital stay c/b hydronephrosis s/p jamison removal on 08/27. Overnight no acute events. VSS at 115-142/69-87, 99% on RA, 73-86, 97.6 T Max, 1110 L UOP, no BM. This morning seen and pt in no acute distress, knitting in bed, feeling much better, says peeing well and did have a BM, tolerating diet. Pleasant without complaints other than minor fatigue. Family History: Unchanged from Admission Social History: Unchanged from Admission Past Medical History: Unchanged from Admission Objective Active Medications: Acetaminophen (Tylenol Tab*) 650 mg PO Q6H PRN PRN Reason: HEADACHE/PAIN Last Admin: 08/29/18 07:24 Dose: 650 mg Albuterol/Ipratropium (Duoneb (Albuterol 2.5 Mg/Ipratropium 0.5 Mg)) 1 neb INH Q6H PRN PRN Reason: SOB/WHEEZING Buprenorphine/Naloxone (Suboxone 8 Mg-2 Mg Sl Film) 1 each SL FILM BID [facility] Last Admin: 08/28/18 21:42 Dose: 1 each Calcium Carbonate (Tums*) 500 mg PO BID [facility] Last Admin: 08/28/18 21:42 Dose: 500 mg Ferrous Sulfate (Ferrous Sulfate Tab*) 325 mg PO DAILY [facility] Last Admin: 08/28/18 08:56 Dose: 325 mg Guaifenesin (Mucinex*) 600 mg PO BID [facility] Last Admin: 08/28/18 21:41 Dose: 600 mg Heparin Sodium (Porcine) (Heparin Flush Picc/Ml/Cvc(*)) 1 - 3 ml FLUSH 0600, 1800 [facility]; Protocol Last Admin: 08/29/18 06:10 Dose: 3 ml Ceftriaxone Sodium 1 gm/ (Sodium Chloride) 50 mls @ 200 mls/hr IVPB Q24H [facility] Stop: 09/01/18 08:59 Last Admin: 08/28/18 08:58 Dose: 200 mls/hr Azithromycin 500 mg/ Sodium (Chloride) 250 mls @ 250 mls/hr IVPB Q24H [facility] Stop: 09/01/18 08:59 Last Admin: 08/28/18 10:06 Dose: 250 mls/hr Levetiracetam (Keppra Tab*) 500 mg PO BID [facility] Last Admin: 08/28/18 21:41 Dose: 500 mg Levothyroxine Sodium (Synthroid Tab*) 75 mcg PO DAILY@0600 [facility] Last Admin: 08/29/18 06:10 Dose: 75 mcg Magnesium Hydroxide (Milk Of Magnesia Liq*) 30 ml PO Q6H PRN PRN Reason: CONSTIPATION Melatonin (Melatonin) 3 mg PO BEDTIME [facility]; Protocol Last Admin: 08/28/18 21:41 Dose: 3 mg Midodrine (Midodrine (Nf)) 10 mg PO Q8HR [facility]; Protocol Last Admin: 08/29/18 06:10 Dose: 10 mg Multivitamins/Minerals (Theragran/Minerals Tab*) 1 tab PO DAILY [facility] Last Admin: 08/28/18 08:57 Dose: 1 tab Nicotine Polacrilex (Nicotine Lozenge*) 4 mg MT Q2H PRN PRN Reason: CRAVINGS Last Admin: 08/29/18 06:10 Dose: 4 mg Olanzapine (Zyprexa Tab*) 10 mg PO BEDTIME [facility] Last Admin: 08/28/18 21:52 Dose: 10 mg Oxybutynin Chloride (Ditropan Tab*) 10 mg PO BID [facility] Last Admin: 08/28/18 21:40 Dose: 10 mg Pantoprazole Sodium (Protonix Iv*) 40 mg IV Q12H [facility] Last Admin: 08/28/18 21:45 Dose: 40 mg Polyethylene Glycol/Electrolytes (Miralax*) 17 gm PO 0800,2100 [facility] Last Admin: 08/28/18 21:42 Dose: 17 gm Sertraline HCl (Zoloft*) 150 mg PO DAILY [facility] Last Admin: 08/28/18 08:56 Dose: 150 mg Sodium Biphosphate/Sodium Phosphate (Fleet Enema*) 1 bottle IN DAILY PRN PRN Reason: CONSTIPATION Trazodone HCl (Desyrel Tab*) 150 mg PO BEDTIME [facility] Last Admin: 08/28/18 21:40 Dose: 150 mg Vital Signs - 8 hr 08/29/18 02:06 Pulse Rate 82 Respiratory 20 Rate O2 Sat by Pulse 96 Oximetry Oxygen Devices in Use Now: None Appearance: Looking older than stated age woman in NAD Eyes: No Scleral Icterus Ears/Nose/Mouth/Throat: Mucous Membranes Moist - Poor dentition, - Neck: NL Appearance and Movements; NL JVP, Trachea Midline Respiratory: - - Crackles to blt bases and diminshed in LLL, rhonchrous throughout without wheeze Cardiovascular: - - 3/6 JESSIKA across precordium Abdominal: NL Sounds; No Tenderness; No Distention, No Hepatosplenomegaly Lymphatic: No Cervical Adenopathy Extremities: No Edema Skin: No Rash or Ulcers Neurological: Alert and Oriented x 3 Nutrition: Taking PO's Result Diagrams: 08/29/18 06:20 08/29/18 06:20 Microbiology and Other Data: Micro: Ecoli Kleb and Staph in Sputum, Influenz Neg UCX Neg Blood Cx Neg FOBT + Assess/Plan/Problems-Billing Assessment: 63 yo F PMH heart block s/p PPM, PSA and OUD on MAT at [facility], asthma, HTN, hypothyroid, mood d/o and seizure d/o NOS, who presented 08/25 with fever, flank pain, found to have PNA with E Coli/Kleb, Staph sputum, sepsis and +FOBT with melanotic stool. Initially admitted to ICU, xfer on 08/25, hospital stay c/b hydronephrosis s/p jamison removal on 08/27. - Patient Problems (1) Septic shock Current Visit: Yes Status: Acute Code(s): A41.9 - SEPSIS, UNSPECIFIED ORGANISM; R65.21 - SEVERE SEPSIS WITH SEPTIC SHOCK SNOMED Code(s): 54407560 Comment: - Present on admission. - Source was pneumonia. - Resolved. - On midodrine home medication now (2) Pneumonia Current Visit: Yes Status: Acute Code(s): J18.9 - PNEUMONIA, UNSPECIFIED ORGANISM SNOMED Code(s): 818094597 Comment: -Influenza is negative. Blood cultures show no growth so far. Legionella and pneumococcal Ag.negative -Continue Ceftriaxone and Zithromax day 4/7 on 08/29 (3) GI bleed Current Visit: Yes Status: Acute Code(s): K92.2 - GASTROINTESTINAL HEMORRHAGE, UNSPECIFIED SNOMED Code(s): 47490257 Comment: -Stool for occult blood was positive, seen by Dr Echevarrai -Continue PPI. H/H stable -Plan for scope when pneumonia improved (in vs outpatient). (4) Hydronephrosis Current Visit: Yes Status: Acute Code(s): N13.30 - UNSPECIFIED HYDRONEPHROSIS SNOMED Code(s): 84621148 Comment: - Renal US shows resolution of right sided hydro; left side still has moderate hydro. Patient really wanted to have her Jamison removed so she can move more. Jamison d/c e2 and trial of spontaneous void going well -Repeat renal US ordered for 08/30 (5) UTI (urinary tract infection) Current Visit: Yes Status: Acute Comment: - Recently completed course of Macrobid - UA is negative at this time. (6) Polysubstance abuse Current Visit: Yes Status: Acute Code(s): F19.10 - OTHER PSYCHOACTIVE SUBSTANCE ABUSE, UNCOMPLICATED SNOMED Code(s): 627168780 Comment: - Continue Suboxone. (7) Anemia Current Visit: Yes Status: Acute Code(s): D64.9 - ANEMIA, UNSPECIFIED SNOMED Code(s): 752935993 Comment: - W/u compatible with YAAKOV - start Ferrous sulfate. - H/H remains stable. (8) Hypothyroid Current Visit: No Status: Acute Code(s): E03.9 - HYPOTHYROIDISM, UNSPECIFIED SNOMED Code(s): 19815091 Comment: - continue synthroid (9) Anxiety Current Visit: No Status: Acute Code(s): F41.9 - ANXIETY DISORDER, UNSPECIFIED SNOMED Code(s): 12897665 Comment: - Zoloft , Olanzapine (10) Seizure Current Visit: No Status: Acute Code(s): R56.9 - UNSPECIFIED CONVULSIONS SNOMED Code(s): 17565531 Comment: - Continue Keppra (11) Full code status Current Visit: Yes Status: Acute Code(s): Z78.9 - OTHER SPECIFIED HEALTH STATUS SNOMED Code(s): 581748101 (12) DVT prophylaxis Current Visit: Yes Status: Acute Code(s): BAF7019 - SNOMED Code(s): 666826400 Comment: - Pharmacological prophylaxis contraindicated in the setting of possible GI bleed. - SCDs. Status and Disposition: Inpatient. PT/OT
[2018-08-29] MEDS: levETIRAcetam TAB* 500 MG PO SCH ×2 (10:50→20:11)
[2018-08-29] MEDS: Polyethylene Glycol 3350* 17 GM PACKET PO SCH ×2 (10:50→20:12)
[2018-08-29] MEDS: guaiFENesin ER TAB 600 MG PO SCH ×2 (10:50→20:10)
[2018-08-29] MEDS: Ferrous Sulfate TAB* 325 MG PO SCH (10:50)
[2018-08-29] MEDS: Sertraline* 50 MG TAB PO SCH (10:51)
[2018-08-29] MEDS: Multivitamins/Minerals TAB PO SCH (10:51)
[2018-08-29] MEDS: Calcium Carbonate CHEW TAB* 500 MG (TUMS) PO SCH ×2 (10:51→20:10)
[2018-08-29] MEDS: Pantoprazole IV* 40 MG IV SCH ×2 (10:52→21:40)
[2018-08-29] MEDS: Oxybutynin TAB* 5 MG PO SCH ×2 (10:52→20:12)
[2018-08-29] MEDS: Buprenorp/Nalox 8-2 MG FILM 1 EACH SL FILM SCH ×2 (10:52→20:10)
[2018-08-29] MEDS: cefTRIAXone(*) 1 GM in NS 0.9% 50 ML* 50 ML IVPB SCH (11:32)
[2018-08-29] MEDS: Azithromycin IV(*) 500 MG in NS 0.9% 250 ML* 250 ML IVPB SCH (12:29)
[2018-08-29] MEDS: traZODone TAB* 50 MG TAB PO SCH (20:11)
[2018-08-29] MEDS: Melatonin 3 MG TAB PO SCH (20:11)
[2018-08-29] MEDS: OLANzapine TAB* 10 MG PO SCH (20:11)
[2018-08-30] MEDS: Levothyroxine TAB* 75 MCG TAB PO SCH (05:10)
[2018-08-30] MEDS: CMCS: Midodrine (NF) 5 MG TAB PO SCH ×3 (05:10→20:14)
[2018-08-30 05:38] LABS: Hematocrit 34 % (35-47); Hemoglobin 11.2 g/dl (12.0-16.0); Mean Corpuscular HGB Conc 33 g/dl (31-36); Mean Corpuscular Hemoglobin 31 pg (27-31); Mean Corpuscular Volume 92 fL (80-97); Mean Platelet Volume 6.8 fL (7.4-10.4); Platelet Count 310 10^3/ul (150-450); Red Blood Count 3.67 10^6/ul (4.00-5.40); Red Cell Distribution Width 14 % (10.5-15); White Blood Count 5.6 10^3/ul (3.5-10.8)
[2018-08-30 05:55] LABS: BUN/Creatinine Ratio 17.5 (8-20); Calcium 8.9 mg/dL (8.6-10.3); EGFR African American 129.6 (>60); EGFR Non-African American 107.1 (>60)
[2018-08-30 06:33] LABS: ABS Basophils 0 10^3/ul (0-0.2); ABS Eosinophils 0.6 10^3/ul (0-0.6); ABS Lymphocytes 2.3 10^3/ul (1.0-4.8); ABS Monocytes 0.7 10^3/ul (0-0.8); ABS Neutrophils 2.1 10^3/ul (1.5-7.7); ABS Nucleated RBC 0 10^3/ul; Eosinophil % 10.3 %; Lymphocyte % 40.9 %; Nucleated Red Blood Cells % 0.1
--- NOTE | 2018-08-30 07:16 | PN ---
Subjective Date of Service: 08/30/18 Interval History: HD # 5 on 08/30/18 63 yo F PMH heart block s/p PPM, PSA and OUD on MAT at [facility], asthma, HTN, hypothyroid, mood d/o and seizure d/o NOS, who presented 08/25 with fever, flank pain, found to have PNA with E Coli/Kleb, Staph sputum, sepsis and +FOBT with melanotic stool. Initially admitted to ICU, xfer on 08/25, hospital stay c/b hydronephrosis s/p jamison removal on 08/27. Overnight no acute events. VSS This morning seen and pt in no acute distress, sleeping in bed, feeling much better, says peeing well and did have a BM, tolerating diet. Pleasant without complaints other than minor fatigue. Awaiting renal US. Going to work with OT who are on there way in as I am leaving Family History: Unchanged from Admission Social History: Unchanged from Admission Past Medical History: Unchanged from Admission Objective Active Medications: Acetaminophen (Tylenol Tab*) 650 mg PO Q6H PRN PRN Reason: HEADACHE/PAIN Last Admin: 08/29/18 19:20 Dose: 650 mg Albuterol/Ipratropium (Duoneb (Albuterol 2.5 Mg/Ipratropium 0.5 Mg)) 1 neb INH Q6H PRN PRN Reason: SOB/WHEEZING Buprenorphine/Naloxone (Suboxone 8 Mg-2 Mg Sl Film) 1 each SL FILM BID [facility] Last Admin: 08/29/18 20:10 Dose: 1 each Calcium Carbonate (Tums*) 500 mg PO BID [facility] Last Admin: 08/29/18 20:10 Dose: 500 mg Ferrous Sulfate (Ferrous Sulfate Tab*) 325 mg PO DAILY [facility] Last Admin: 08/29/18 10:50 Dose: 325 mg Guaifenesin (Mucinex*) 600 mg PO BID [facility] Last Admin: 08/29/18 20:10 Dose: 600 mg Heparin Sodium (Porcine) (Heparin Flush Picc/Ml/Cvc(*)) 1 - 3 ml FLUSH 0600, 1800 [facility]; Protocol Last Admin: 08/30/18 05:04 Dose: 3 ml Ceftriaxone Sodium 1 gm/ (Sodium Chloride) 50 mls @ 200 mls/hr IVPB Q24H [facility] Stop: 09/01/18 08:59 Last Admin: 08/29/18 11:32 Dose: 200 mls/hr Azithromycin 500 mg/ Sodium (Chloride) 250 mls @ 250 mls/hr IVPB Q24H [facility] Stop: 09/01/18 08:59 Last Admin: 08/29/18 12:29 Dose: 250 mls/hr Levetiracetam (Keppra Tab*) 500 mg PO BID [facility] Last Admin: 08/29/18 20:11 Dose: 500 mg Levothyroxine Sodium (Synthroid Tab*) 75 mcg PO DAILY@0600 [facility] Last Admin: 08/30/18 05:10 Dose: 75 mcg Magnesium Hydroxide (Milk Of Magnesia Liq*) 30 ml PO Q6H PRN PRN Reason: CONSTIPATION Melatonin (Melatonin) 3 mg PO BEDTIME [facility]; Protocol Last Admin: 08/29/18 20:11 Dose: 3 mg Midodrine (Midodrine (Nf)) 10 mg PO Q8HR [facility]; Protocol Last Admin: 08/30/18 05:10 Dose: 10 mg Multivitamins/Minerals (Theragran/Minerals Tab*) 1 tab PO DAILY [facility] Last Admin: 08/29/18 10:51 Dose: 1 tab Nicotine Polacrilex (Nicotine Lozenge*) 4 mg MT Q2H PRN PRN Reason: CRAVINGS Last Admin: 08/29/18 22:31 Dose: 4 mg Olanzapine (Zyprexa Tab*) 10 mg PO BEDTIME [facility] Last Admin: 08/29/18 20:11 Dose: 10 mg Oxybutynin Chloride (Ditropan Tab*) 10 mg PO BID [facility] Last Admin: 08/29/18 20:12 Dose: 10 mg Pantoprazole Sodium (Protonix Iv*) 40 mg IV Q12H [facility] Last Admin: 08/29/18 21:40 Dose: 40 mg Polyethylene Glycol/Electrolytes (Miralax*) 17 gm PO 0800,2100 [facility] Last Admin: 08/29/18 20:12 Dose: 17 gm Sertraline HCl (Zoloft*) 150 mg PO DAILY [facility] Last Admin: 08/29/18 10:51 Dose: 150 mg Sodium Biphosphate/Sodium Phosphate (Fleet Enema*) 1 bottle [place] DAILY PRN PRN Reason: CONSTIPATION Trazodone HCl (Desyrel Tab*) 150 mg PO BEDTIME [facility] Last Admin: 08/29/18 20:11 Dose: 150 mg Vital Signs - 8 hr 08/29/18 08/30/18 08/30/18 23:48 00:32 03:18 Temperature 98.2 F 98.1 F Pulse Rate 69 72 70 Respiratory 20 18 17 Rate Blood Pressure 120/64 120/67 (mmHg) O2 Sat by Pulse 96 95 95 Oximetry Oxygen Devices in Use Now: None Appearance: Pleasant woman in bed in NAD Ears/Nose/Mouth/Throat: Mucous Membranes Moist, - - Poor dentition Neck: NL Appearance and Movements; NL JVP Respiratory: - - Rhonchi throuhgout, diminshed in bases Cardiovascular: RRR, - - 3/6 JESSIKA Abdominal: NL Sounds; No Tenderness; No Distention, No Hepatosplenomegaly Lymphatic: No Cervical Adenopathy Extremities: No Edema Skin: No Rash or Ulcers Neurological: Alert and Oriented x 3 Result Diagrams: 08/30/18 05:27 08/30/18 05:27 Microbiology and Other Data: Micro: Ecoli Kleb and Staph in Sputum, Influenz Neg UCX Neg Blood Cx Neg FOBT + Assess/Plan/Problems-Billing Assessment: 63 yo F PMH heart block s/p PPM, PSA and OUD on MAT at [facility], asthma, HTN, hypothyroid, mood d/o and seizure d/o NOS, who presented 08/25 with fever, flank pain, found to have PNA with E Coli/Kleb, Staph sputum, sepsis and +FOBT with melanotic stool. Initially admitted to ICU, xfer on 08/25, hospital stay c/b hydronephrosis s/p jamison removal on 08/27. - Patient Problems (1) Septic shock Current Visit: Yes Status: Acute Code(s): A41.9 - SEPSIS, UNSPECIFIED ORGANISM; R65.21 - SEVERE SEPSIS WITH SEPTIC SHOCK SNOMED Code(s): 06021871 Comment: - Present on admission. - Source was pneumonia. - Resolved. - On midodrine home medication now (2) Pneumonia Current Visit: Yes Status: Acute Code(s): J18.9 - PNEUMONIA, UNSPECIFIED ORGANISM SNOMED Code(s): 411521917 Comment: -Influenza is negative. Blood cultures show no growth so far. Legionella and pneumococcal Ag.negative -Continue Ceftriaxone and Zithromax day 5/7 on 08/30 (3) GI bleed Current Visit: Yes Status: Acute Code(s): K92.2 - GASTROINTESTINAL HEMORRHAGE, UNSPECIFIED SNOMED Code(s): 20372642 Comment: -Stool for occult blood was positive, seen by Dr Echevarria -Continue PPI. H/H stable -Plan for scope when pneumonia improved (in vs outpatient). (4) Hydronephrosis Current Visit: Yes Status: Acute Code(s): N13.30 - UNSPECIFIED HYDRONEPHROSIS SNOMED Code(s): 15567177 Comment: - Renal US shows resolution of right sided hydro; left side still has moderate hydro. Patient really wanted to have her Jamison removed so she can move more. Jamison d/c 08/27 and trial of spontaneous void going well -Repeat renal US ordered for 08/30 (5) UTI (urinary tract infection) Current Visit: Yes Status: Acute Comment: - Recently completed course of Macrobid - UA is negative at this time. (6) Polysubstance abuse Current Visit: Yes Status: Acute Code(s): F19.10 - OTHER PSYCHOACTIVE SUBSTANCE ABUSE, UNCOMPLICATED SNOMED Code(s): 424594420 Comment: - Continue Suboxone. (7) Anemia Current Visit: Yes Status: Acute Code(s): D64.9 - ANEMIA, UNSPECIFIED SNOMED Code(s): 185240379 Comment: - W/u compatible with YAAKOV - start Ferrous sulfate. - H/H remains stable. (8) Hypothyroid Current Visit: No Status: Acute Code(s): E03.9 - HYPOTHYROIDISM, UNSPECIFIED SNOMED Code(s): 53492745 Comment: - continue synthroid (9) Anxiety Current Visit: No Status: Acute Code(s): F41.9 - ANXIETY DISORDER, UNSPECIFIED SNOMED Code(s): 36332949 Comment: - Zoloft , Olanzapine (10) Seizure Current Visit: No Status: Acute Code(s): R56.9 - UNSPECIFIED CONVULSIONS SNOMED Code(s): 97652380 Comment: - Continue Keppra (11) Full code status Current Visit: Yes Status: Acute Code(s): Z78.9 - OTHER SPECIFIED HEALTH STATUS SNOMED Code(s): 258005270 (12) DVT prophylaxis Current Visit: Yes Status: Acute Code(s): [id number] - SNOMED Code(s): 815398347 Comment: - Pharmacological prophylaxis contraindicated in the setting of possible GI bleed. - SCDs. Status and Disposition: Inpatient. PT/OT rec STR vs repeat [facility]
[2018-08-30] MEDS: Nicotine Lozenge* 4 MG LOZENGE MT PRN ×7 (09:12→23:08)
[2018-08-30] MEDS ORDERED: NS 0.9% 250 ML* 250 ML ONE (10:09)
[2018-08-30] MEDS: Sertraline* 50 MG TAB PO SCH (10:21)
[2018-08-30] MEDS: Polyethylene Glycol 3350* 17 GM PACKET PO SCH ×2 (10:21→20:31)
[2018-08-30] MEDS: Oxybutynin TAB* 5 MG PO SCH ×2 (10:21→20:12)
[2018-08-30] MEDS: Ferrous Sulfate TAB* 325 MG PO SCH (10:21)
[2018-08-30] MEDS: Multivitamins/Minerals TAB PO SCH (10:22)
[2018-08-30] MEDS: Buprenorp/Nalox 8-2 MG FILM 1 EACH SL FILM SCH ×2 (10:22→20:16)
[2018-08-30] MEDS: guaiFENesin ER TAB 600 MG PO SCH ×2 (10:22→20:13)
[2018-08-30] MEDS: Pantoprazole IV* 40 MG IV SCH ×2 (10:22→20:17)
[2018-08-30] MEDS: Calcium Carbonate CHEW TAB* 500 MG (TUMS) PO SCH ×2 (10:22→20:15)
[2018-08-30] MEDS: levETIRAcetam TAB* 500 MG PO SCH ×2 (10:22→20:12)
[2018-08-30] MEDS: cefTRIAXone(*) 1 GM in NS 0.9% 50 ML* 50 ML IVPB SCH (10:36)
[2018-08-30] MEDS: Azithromycin IV(*) 500 MG in NS 0.9% 250 ML* 250 ML IVPB SCH (10:37)
[2018-08-30] MEDS ORDERED: Buprenorp/Nalox 2-0.5 MG SL TB 1 EACH TAB.SUBL SL ONE (12:59)
[2018-08-30] MEDS ORDERED: Albuterol/Ipratropium NEB.SOL* Albuterol 2.5 MG/Ipratropium 0.5 MG 3 ML INH PRN (13:22)
[2018-08-30] MEDS ORDERED: Albuterol/Ipratropium NEB.SOL* Albuterol 2.5 MG/Ipratropium 0.5 MG 3 ML INH SCH (14:00)
[2018-08-30] MEDS: Acetaminophen TAB* 325 MG PO PRN (16:08)
[2018-08-30] MEDS: OLANzapine TAB* 10 MG PO SCH (20:13)
[2018-08-30] MEDS: Melatonin 3 MG TAB PO SCH (20:13)
[2018-08-30] MEDS: traZODone TAB* 50 MG TAB PO SCH (20:13)
[2018-08-31] MEDS: CMCS: Midodrine (NF) 5 MG TAB PO SCH ×2 (05:16→14:42)
[2018-08-31] MEDS: Levothyroxine TAB* 75 MCG TAB PO SCH (05:16)
[2018-08-31 05:34] LABS: Hematocrit 35 % (35-47); Hemoglobin 11.9 g/dl (12.0-16.0); Mean Corpuscular HGB Conc 35 g/dl (31-36); Mean Corpuscular Hemoglobin 32 pg (27-31); Mean Corpuscular Volume 92 fL (80-97); Mean Platelet Volume 6.8 fL (7.4-10.4); Platelet Count 327 10^3/ul (150-450); Red Blood Count 3.75 10^6/ul (4.00-5.40); Red Cell Distribution Width 14 % (10.5-15)
[2018-08-31 05:50] LABS: BUN/Creatinine Ratio 16.1 (8-20); Calcium 8.9 mg/dL (8.6-10.3); EGFR African American 117.6 (>60); EGFR Non-African American 97.2 (>60); Potassium 4.6 mmol/L (3.5-5.0)
[2018-08-31 06:05] LABS: ABS Basophils 0.1 10^3/ul (0-0.2); ABS Eosinophils 0.5 10^3/ul (0-0.6); ABS Lymphocytes 2.2 10^3/ul (1.0-4.8); ABS Monocytes 0.5 10^3/ul (0-0.8); ABS Neutrophils 2.6 10^3/ul (1.5-7.7); ABS Nucleated RBC 0 10^3/ul; Eosinophil % 8.8 %; Lymphocyte % 37.2 %; Nucleated Red Blood Cells % 0.1
[2018-08-31 08:01] VITALS: BP 133/80
[2018-08-31] MEDS: Nicotine Lozenge* 4 MG LOZENGE MT PRN ×4 (08:05→15:37)
--- NOTE | 2018-08-31 08:18 | PN ---
Subjective Date of Service: 08/31/18 Interval History: HD # 6 on 08/31/18 63 yo F PMH heart block s/p PPM, PSA and OUD on MAT at [facility], asthma, HTN, hypothyroid, mood d/o and seizure d/o NOS, who presented 08/25 with fever, flank pain, found to have PNA with E Coli/Kleb, Staph sputum, sepsis and +FOBT with melanotic stool. Initially admitted to ICU, xfer on 08/25, hospital stay c/b hydronephrosis s/p jamison removal on 08/27. Overnight no acute events. VSS, repeat US yesterday with persitent L hydronephropsis, SIG UOP in 24 hours, mild hypoNA today. Did increase suboxone to 10 this AM for pain This morning seen she is feeling more like herself. She is visiting with her today and we anticipate d/c in the next 24 hours. I will need to discuss with [facility] she will need to have a seismograph shooter schedule. She is still coughing, gets GUEVARA, no chest pain, no GI or complaints, no fevers or chills. Objective Active Medications: Acetaminophen (Tylenol Tab*) 650 mg PO Q6H PRN PRN Reason: HEADACHE/PAIN Last Admin: 08/30/18 16:08 Dose: 650 mg Albuterol/Ipratropium (Duoneb (Albuterol 2.5 Mg/Ipratropium 0.5 Mg)) 1 neb INH Q4H PRN PRN Reason: SOB/WHEEZING Buprenorphine/Naloxone (Suboxone 8 Mg-2 Mg Sl Film) 1 each SL FILM BID [facility] Last Admin: 08/30/18 20:16 Dose: 1 each Buprenorphine/Naloxone (Suboxone 2-0.5 Mg Sl Tab*) 1 each SL DAILY [facility] Calcium Carbonate (Tums*) 500 mg PO BID [facility] Last Admin: 08/30/18 20:15 Dose: 500 mg Ferrous Sulfate (Ferrous Sulfate Tab*) 325 mg PO DAILY [facility] Last Admin: 08/30/18 10:21 Dose: 325 mg Guaifenesin (Mucinex*) 600 mg PO BID [facility] Last Admin: 08/30/18 20:13 Dose: 600 mg Heparin Sodium (Porcine) (Heparin Flush Picc/Ml/Cvc(*)) 1 - 3 ml FLUSH 0600, 1800 [facility]; Protocol Last Admin: 08/31/18 05:18 Dose: 3 ml Ceftriaxone Sodium 1 gm/ (Sodium Chloride) 50 mls @ 200 mls/hr IVPB Q24H [facility] Stop: 09/01/18 08:59 Last Admin: 08/30/18 10:36 Dose: 200 mls/hr Azithromycin 500 mg/ Sodium (Chloride) 250 mls @ 250 mls/hr IVPB Q24H [facility] Stop: 09/01/18 08:59 Last Admin: 08/30/18 10:37 Dose: 250 mls/hr Levetiracetam (Keppra Tab*) 500 mg PO BID [facility] Last Admin: 08/30/18 20:12 Dose: 500 mg Levothyroxine Sodium (Synthroid Tab*) 75 mcg PO DAILY@0600 [facility] Last Admin: 08/31/18 05:16 Dose: 75 mcg Magnesium Hydroxide (Milk Of Magnesia Liq*) 30 ml PO Q6H PRN PRN Reason: CONSTIPATION Melatonin (Melatonin) 3 mg PO BEDTIME [facility]; Protocol Last Admin: 08/30/18 20:13 Dose: 3 mg Midodrine (Midodrine (Nf)) 10 mg PO Q8HR [facility]; Protocol Last Admin: 08/31/18 05:16 Dose: 10 mg Multivitamins/Minerals (Theragran/Minerals Tab*) 1 tab PO DAILY [facility] Last Admin: 08/30/18 10:22 Dose: 1 tab Nicotine Polacrilex (Nicotine Lozenge*) 4 mg MT Q2H PRN PRN Reason: CRAVINGS Last Admin: 08/31/18 08:05 Dose: 4 mg Olanzapine (Zyprexa Tab*) 10 mg PO BEDTIME [facility] Last Admin: 08/30/18 20:13 Dose: 10 mg Oxybutynin Chloride (Ditropan Tab*) 10 mg PO BID [facility] Last Admin: 08/30/18 20:12 Dose: 10 mg Pantoprazole Sodium (Protonix Iv*) 40 mg IV Q12H [facility] Last Admin: 08/30/18 20:17 Dose: 40 mg Polyethylene Glycol/Electrolytes (Miralax*) 17 gm PO 0800,2100 [facility] Last Admin: 08/30/18 20:31 Dose: Not Given Sertraline HCl (Zoloft*) 150 mg PO DAILY [facility] Last Admin: 08/30/18 10:21 Dose: 150 mg Sodium Biphosphate/Sodium Phosphate (Fleet Enema*) 1 bottle [place] DAILY PRN PRN Reason: CONSTIPATION Trazodone HCl (Desyrel Tab*) 150 mg PO BEDTIME [facility] Last Admin: 08/30/18 20:13 Dose: 150 mg Vital Signs - 8 hr 08/31/18 08/31/18 08/31/18 02:40 03:01 07:47 Temperature 98.1 F 97.7 F Pulse Rate 70 70 70 Respiratory 16 17 16 Rate Blood Pressure 124/73 133/80 (mmHg) O2 Sat by Pulse 96 95 96 Oximetry Oxygen Devices in Use Now: None Appearance: Older than stated age appearing woman in bed Eyes: No Scleral Icterus, PERRLA Ears/Nose/Mouth/Throat: Mucous Membranes Moist, - - Adentulous Neck: NL Appearance and Movements; NL JVP, Trachea Midline Respiratory: Symmetrical Chest Expansion and Respiratory Effort, - - Blt crackles in both bases, rhonchi in upper lung melendez Cardiovascular: NL Sounds; No Murmurs; No JVD, - - S1 S2 3/6 JESSIKA , pacemaker Abdominal: NL Sounds; No Tenderness; No Distention, No Hepatosplenomegaly Lymphatic: No Cervical Adenopathy Extremities: No Edema Skin: No Rash or Ulcers Neurological: Alert and Oriented x 3 Result Diagrams: 08/31/18 05:19 08/31/18 05:19 Microbiology and Other Data: Micro: Ecoli Kleb and Staph in Sputum, Influenz Neg UCX Neg Blood Cx Neg FOBT + Assess/Plan/Problems-Billing Assessment: 63 yo F PMH heart block s/p PPM, PSA and OUD on MAT at [facility], asthma, HTN, hypothyroid, mood d/o and seizure d/o NOS, who presented 08/25 with fever, flank pain, found to have PNA with E Coli/Kleb, Staph sputum, sepsis and +FOBT with melanotic stool. Initially admitted to ICU, xfer on 08/25, hospital stay c/b hydronephrosis s/p jamison removal on 08/27. - Patient Problems (1) Septic shock Current Visit: Yes Status: Acute Code(s): A41.9 - SEPSIS, UNSPECIFIED ORGANISM; R65.21 - SEVERE SEPSIS WITH SEPTIC SHOCK SNOMED Code(s): 76107484 Comment: - Present on admission. - Source was pneumonia. - Resolved. - On midodrine home medication now (2) Pneumonia Current Visit: Yes Status: Acute Code(s): J18.9 - PNEUMONIA, UNSPECIFIED ORGANISM SNOMED Code(s): 144508345 Comment: -Influenza is negative. Blood cultures show no growth so far. Legionella and pneumococcal Ag.negative -Continue Ceftriaxone and Zithromax day 6/7 on 08/31 (3) GI bleed Current Visit: Yes Status: Acute Code(s): K92.2 - GASTROINTESTINAL HEMORRHAGE, UNSPECIFIED SNOMED Code(s): 62038706 Comment: -Stool for occult blood was positive, seen by Dr Echevarria -Continue PPI. H/H stable -Plan for scope when pneumonia improved (in vs outpatient). (4) Hydronephrosis Current Visit: Yes Status: Acute Code(s): N13.30 - UNSPECIFIED HYDRONEPHROSIS SNOMED Code(s): 61575902 Comment: - Renal US shows resolution of right sided hydro; left side still has moderate hydro. Patient really wanted to have her Jamison removed so she can move more. Jamison d/c 08/27 and trial of spontaneous void going well -Repeat renal US shows persistent hydro, though no e/o obstruction or functional end organ damage, can be followed as outpatient (5) UTI (urinary tract infection) Current Visit: Yes Status: Acute Comment: - Recently completed course of Macrobid - UA is negative at this time. (6) Polysubstance abuse Current Visit: Yes Status: Acute Code(s): F19.10 - OTHER PSYCHOACTIVE SUBSTANCE ABUSE, UNCOMPLICATED SNOMED Code(s): 037684163 Comment: - Continue Suboxone, increased to 10 AM continue 8PM for pain (7) Anemia Current Visit: Yes Status: Acute Code(s): D64.9 - ANEMIA, UNSPECIFIED SNOMED Code(s): 654111192 Comment: - W/u compatible with YAAKOV - start Ferrous sulfate. - H/H remains stable. (8) Hypothyroid Current Visit: No Status: Acute Code(s): E03.9 - HYPOTHYROIDISM, UNSPECIFIED SNOMED Code(s): 04336512 Comment: - continue synthroid (9) Anxiety Current Visit: No Status: Acute Code(s): F41.9 - ANXIETY DISORDER, UNSPECIFIED SNOMED Code(s): 46030637 Comment: - Zoloft , Olanzapine (10) Seizure Current Visit: No Status: Acute Code(s): R56.9 - UNSPECIFIED CONVULSIONS SNOMED Code(s): 28857082 Comment: - Continue Keppra (11) Full code status Current Visit: Yes Status: Acute Code(s): Z78.9 - OTHER SPECIFIED HEALTH STATUS SNOMED Code(s): 858235376 (12) DVT prophylaxis Current Visit: Yes Status: Acute Code(s): DKS5170 - SNOMED Code(s): 269453787 Comment: - Pharmacological prophylaxis contraindicated in the setting of possible GI bleed. - SCDs. Status and Disposition: Stable for [facility] either today or tomorrow
[2018-08-31] MEDS ORDERED: Buprenorp/Nalox 2-0.5 MG SL TB 1 EACH TAB.SUBL SL SCH (09:00)
[2018-08-31] MEDS: Polyethylene Glycol 3350* 17 GM PACKET PO SCH (11:22)
[2018-08-31] MEDS: cefTRIAXone(*) 1 GM in NS 0.9% 50 ML* 50 ML IVPB SCH (11:22)
[2018-08-31] MEDS: Buprenorp/Nalox 8-2 MG FILM 1 EACH SL FILM SCH (11:24)
[2018-08-31] MEDS: Azithromycin IV(*) 500 MG in NS 0.9% 250 ML* 250 ML IVPB SCH (11:24)
[2018-08-31] MEDS: Oxybutynin TAB* 5 MG PO SCH (11:25)
[2018-08-31] MEDS: Calcium Carbonate CHEW TAB* 500 MG (TUMS) PO SCH (11:25)
[2018-08-31] MEDS: Sertraline* 50 MG TAB PO SCH (11:26)
[2018-08-31] MEDS: guaiFENesin ER TAB 600 MG PO SCH (11:26)
[2018-08-31] MEDS: Ferrous Sulfate TAB* 325 MG PO SCH (11:26)
[2018-08-31] MEDS: levETIRAcetam TAB* 500 MG PO SCH (11:27)
[2018-08-31] MEDS: Multivitamins/Minerals TAB PO SCH (11:27)
[2018-08-31] MEDS: Pantoprazole IV* 40 MG IV SCH (11:32)
--- NOTE | 2018-08-31 17:55 | DS ---
DISCHARGE SUMMARY: DATE OF ADMISSION: 08/25/18 DATE OF DISCHARGE: 08/31/18 PRIMARY CARE PHYSICIAN: None.Resident at [facility] PRIMARY DIAGNOSES: 1. Pneumonia. 2. Sepsis. 3. Anemia with melanotic stool SECONDARY DIAGNOSES: 1. Polysubstance abuse, in remission. 2. Complete heart block status post pacemaker placement. 3. Asthma. 4. Hypotension. 5. Hypothyroid. 6. Mood disorder. 7. Seizure disorder. 8. Anemia. MEDICATIONS ON DISCHARGE: 1. Acetaminophen 325 mg to 650 mg p.o. q.6 hours p.r.n. for pain. 2. Albuterol 2 puffs inhaled q.4 hours p.r.n. for shortness of breath or cough. 3. Alendronate 70 mg p.o. weekly. 4. Aspirin 81 mg p.o. daily. 5. Aspirin 325 mg p.o. daily p.r.n. x1 for chest pain. 6. Bismuth subsalicylate 524 mg p.o. q.1 hour p.r.n. for indigestion. 7. Buprenorphine 8 mg/naloxone 2 mg sublingual film, 1 film sublingual b.i.d. In addition, 2 of buprenorphine/0.5 mg of naloxone 1 sublingual film dissolved q.a.m. for an additional 5 days after discharge. 8. Calcium carbonate 1000 mg p.o. b.i.d. 9. Calcium carbonate, vitamin D3 one tab p.o. daily. 10. Diphenhydramine 50 mg p.o. daily p.r.n. for allergy symptoms. 11. Eucalyptus menthol 1 lozenge p.o. q.2 hours for cough. 12. Ferrous sulfate 325 mg p.o. b.i.d. 13. Fluticasone nasal spray, 2 sprays both nares daily. 14. Guaifenesin 600 mg to 1200 mg p.o. b.i.d. for congestion. 15. Ibuprofen 200 to 400 mg p.o. q.6 hours for fever or pain. 16. Keppra 500 mg p.o. b.i.d. 17. Levaquin 750 mg p.o. daily x2 days after discharge. 18. Levothyroxine 75 mcg p.o. daily. 19. Loratadine 10 mg p.o. daily. 20. Magnesium hydroxide liquid 30 mL p.o. daily p.r.n. for constipation. 21. Melatonin 3 mg p.o. at bedtime. 22. Multivitamins 1 tab p.o. daily. 23. Nicotine lozenges 12 mg p.o. q.i.d. p.r.n. for craving. 24. Olanzapine 10 mg p.o. at bedtime. 25. Omeprazole 40 mg p.o. daily. 26. Oxybutynin 10 mg p.o. b.i.d. 27. Polyethylene glycol 17 g p.o. daily p.r.n. for constipation. 28. Saline nasal spray 1 to 2 sprays both nares q.4 hours p.r.n. for congestion. 29. Sertraline 150 mg p.o. daily. 30. Trazodone 150 mg p.o. q.h.s. Medication changes on this hospitalization: 1. The addition of buprenorphine and naloxone 2/0.5 mg sublingual strips to be dissolved q.a.m. p.r.n. for extra pain for the next 5 days after discharge. 2. Levofloxacin 750 mg 1 tab p.o. daily for an additional 2 days after discharge. HISTORY OF PRESENT ILLNESS AND HOSPITAL COURSE: A 63-year-old female with above past medical history who presented to the emergency room from the [facility] on 08/25/18 with complaints of flank pain and some dysuria. She had just completed a week of Macrobid as outpatient for urinary tract infection but in the ED, she was found to be quite hypotensive with systolic blood pressures in the 70s to 80s. Imaging was done which did demonstrate bilateral lung infiltrates consistent with the pneumonia as well as mild bilateral hydronephrosis and some constipation. Other vitals on presentation to the emergency room were stable. Labs on admission were significant for an H and H of 8.5 and 26 and a BMP was unremarkable. The patient was bolused with 3 L normal saline, and given 1 U PRBC and admitted to the hospital for presumed sepsis secondary to pneumonia. Golden culture was also collected prior to hospitalization. Her hospital course by problem is as follows: 1. Sepsis. The patient presented hypotensive and had complaints of fever prior to admission with evidence of pneumonia on imaging as a source. UA, blood cultures were obtained, although ultimately urine and blood were no growth to date, so presumed source of sepsis was pneumonia. She was treated for community-acquired pneumonia with CTZ and Azithro for 6 days that she was in the hospital and will be discharged on additional antibiotics to complete her course. The patient did complain of cough and some chest pain on hospital day 2, although was successful in bringing up productive sputum. Briefly on supportive oxygen, although was able to be weaned off very quickly by hospital day 3. In terms of her hypotension, the patient was initially bolused with 3 L normal saline and maintained her pressures afterwards. Her sepsis end-organ markers, lactic acid was not elevated on admission and there was no evidence of kidney damage. 2. Pneumonia. As above, the patient was found to have bilateral pulmonary infiltrates on CT scan of the chest, abdomen, and pelvis done in the emergency room. This is the presumed source of her low blood pressure and symptoms. She was treated with azithromycin and ceftriaxone for total of 6 days and discharged on levofloxacin for community-acquired pneumonia, coverage for total of 8 days. Her symptoms have markedly improved in the hospital stay and she also will be discharged on the supportive care such as Mucinex and albuterol inhalers. She requires no oxygen on day of discharge. 3. Hydronephrosis. The patient had bilateral hydronephrosis seen on admission which is probably most likely secondary to constipation. The patient had a Dunlap placed on hospital day 1 and then removed 2 days later for voiding trial and was very successful. She is voiding more than a liter of urine daily by day of discharge. A repeat ultrasound was done which showed complete resolution of the right kidney hydronephrosis and partial resolution of left kidney hydronephrosis. This will likely resolve on its own and the patient has no kidney damage to suggest postrenal occlusion. She is voiding freely and nonemergent renal ultrasound can be obtained in 2 to 3 months by primary care provider if there are further concerns. 3. Anemia. The patient presented with anemia with hemoglobin 8.5, she rec'd 1 U PRBC given + FOBT in ER. Her Hemoglobin responded appropriately and did not fall after this. She has anemia at baseline, although a fecal occult blood was done in the emergency room, which was positive. GI was consulted and felt that we could trend her H and H and elected to not to do EGD or colonoscopy as they could be done on outpatient basis unless she decompensated further. Her blood counts remain stable and on day of discharge, her hemoglobin is 10.9. She can follow up with primary care provider and get routine colonoscopy as she is most likely due for routine colon cancer screening given her age range. This concludes the active hospital problems managed in this hospitalization. Following problems are her chronic problems which were managed in the hospital: 1. Polysubstance abuse. Her Suboxone was continued on hospital day 5 as she complained of chest pain with coughing. Her morning Suboxone dose was increased to 10 mg from 8 mg and I have prescribed 5 strips of 2 mg. Buprenorphine/naloxone 2 mg/0.5 mg to add to morning dose for additional 5 days for p.r.n. pain. This was communicated to her Rehab Facility. 2. Hypothyroid. Her Synthroid was continued. 3. Anxiety. Her Zoloft and olanzapine were continued. 4. Seizure. Her Keppra was continued. 5. Recently resolved urinary tract infection. As said, her culture data came back with no growth to date for urine and blood. She had recently completed a course of Macrobid and thus is thought to be treated. On day of discharge, the patient visited with her and was feeling well, ambulating halls, has had adequate urine output and is making bowel movements. She is tolerating diet. She is feeling more like herself with residual symptoms, just mild productive cough which continues to be improved with the use of incentive spirometry. She and her partner feel that it is reasonable to return to her rehab facility to continue work on her recovery. She may need a couple of days of light duty there and this is communicated with her rehabilitation facility. DATA OBTAINED IN THIS HOSPITALIZATION: Labs on day of discharge: Hemoglobin is 10.9, hematocrit is 33, white blood cell count 6.2. BMP; sodium 133, potassium 4.6, chloride 100, carbon dioxide 28, BUN 10, creatinine 0.62, glucose 86. Microbiology obtained in this hospitalization: Sputum culture which ultimately grew staphylococcus aureus, E. coli, and Klebsiella pneumoniae. Her urine culture showed no growth to date. Blood culture showed no growth to date and stool occult blood was collected which was positive for blood. Imaging that was completed during this hospitalization includes chest x-ray which was completed on 08/25/18 that noted her pacemaker leads in place and airspace disease in right medial lung base with pneumonia. CT chest, abdomen, and pelvis was completed on 08/25/18, which showed findings consistent with bilateral pneumonia. Stool was present throughout the colon with no abnormal masses. Otherwise, unremarkable CT chest, abdomen and pelvis CT. A transthoracic echocardiogram was obtained on 08/26/18 showed left ventricle with an ejection fraction of 50% to 55%. No regional wall motion abnormalities , otherwise unremarkable. Renal ultrasound was performed on 08/30/18 which showed resolution of right-sided hydronephrosis and moderate persistent left- sided hydronephrosis with no evidence of urinary outflow tract obstruction. Plan for followup for the patient can be arranged at her rehabilitation facility and the patient will continue her medications upon discharge there. ITEMS TO FOLLOW UP ON POST DISCHARGE: 1. Anemia. The patient did have significant anemia on presentation to the emergency room and did have a positive fecal occult blood. GI was consulted during this hospitalization and recommended outpatient followup with routine colon cancer screening given her age group. Most likely, this was possibly the product of stress in the setting of sepsis. Her hemoglobin and hematocrit stayed stable throughout her stay despite the first day and she continued p.o. without any issues. Followup EGD is likely not necessary but decision can be made at discretion of GI. 2. Pneumonia. Assure that the patient completes her oral course of antibiotics for additional 2 days. 3. Pain control. Again, the patient was given 5 strips of additional 2 mg buprenorphine to help with pain control in the posthospitalization period. TIME SPENT: 45 minutes was spent in the planning of this discharge with over half of that spent in the direct care of the patient. Please do not hesitate to contact us if there are any questions about the care of this patient and her stay in this hospitalization. [id number]/[facility] #: [id number] [facility] CENTERLiberty
== END 2018-08-31 17:10 | DRG 871 ==
LOC: ED 09:20 → ICU 12:47 → MEDTELE 08-26 02:01 → MED 08-28 17:00
PROVIDERS: ADMIT Internal Medicine Critical Care Medicine; ATTEND Internal Medicine
PROC: 3E033XZ Introduction of Vasopressor into Peripheral Vein, Percutaneous Approach (ICD-10-PCS; principal; 2018-08-25)
PROC: 02HV33Z Insertion of Infusion Device into Superior Vena Cava, Percutaneous Approach (ICD-10-PCS; 2018-08-25)
PROC: 30233N1 Transfusion of Nonautologous Red Blood Cells into Peripheral Vein, Percutaneous Approach (ICD-10-PCS; 2018-08-25)
PROC: 0T9B70Z Drainage of Bladder with Drainage Device, Via Natural or Artificial Opening (ICD-10-PCS; 2018-08-25)
PROC: 0TPBX0Z Removal of Drainage Device from Bladder, External Approach (ICD-10-PCS; 2018-08-27)
DX: A41.9 Sepsis, unspecified organism (principal); R65.21 Severe sepsis with septic shock; J18.9 Pneumonia, unspecified organism; K92.1 Melena; E87.1 Hypo-osmolality and hyponatremia; D62 Acute posthemorrhagic anemia; N13.30 Unspecified hydronephrosis; E86.0 Dehydration; K59.00 Constipation, unspecified; G40.909 Epilepsy, unspecified, not intractable, without status epilepticus; J45.909 Unspecified asthma, uncomplicated; F41.9 Anxiety disorder, unspecified; E03.9 Hypothyroidism, unspecified; I10 Essential (primary) hypertension; M81.0 Age-related osteoporosis without current pathological fracture; E83.51 Hypocalcemia; B95.8 Unspecified staphylococcus as the cause of diseases classified elsewhere; D50.9 Iron deficiency anemia, unspecified; F90.9 Attention-deficit hyperactivity disorder, unspecified type; F14.10 Cocaine abuse, uncomplicated; F15.10 Other stimulant abuse, uncomplicated; F11.10 Opioid abuse, uncomplicated; B96.20 Unspecified Escherichia coli [E. coli] as the cause of diseases classified elsewhere; B96.1 Klebsiella pneumoniae [K. pneumoniae] as the cause of diseases classified elsewhere; F31.9 Bipolar disorder, unspecified; Z88.6 Allergy status to analgesic agent; Z88.5 Allergy status to narcotic agent; Z95.0 Presence of cardiac pacemaker; Z88.0 Allergy status to penicillin; Z88.8 Allergy status to other drugs, medicaments and biological substances; Z82.49 Family history of ischemic heart disease and other diseases of the circulatory system; Z87.891 Personal history of nicotine dependence; Z90.49 Acquired absence of other specified parts of digestive tract; Z79.82 Long term (current) use of aspirin; Z90.711 Acquired absence of uterus with remaining cervical stump
CPT/HCPCS: 36415; 71045; 71250; 74176; 76775; 80048; 80053; 81003; 82272; 82607; 82728; 82746; 83540; 83550; 83605; 83735; 84100; 84484; 85014; 85018; 85025; 85027; 85610; 85730; 86078; 86850; 86900; 86901; 86922; 87040; 87070; 87077; 87186; 87205; 87641; 87899; 93005; 93306; 99283; A9270-GY; G8978-GP-CI; G8978-GP-CL; G8979-GP-CI; G8979-GP-CJ; G8980-GP-CI; G8987-GO-CI; G8988-GO-CI; G8989-GO-CI; J0456; J0610; J0696; J3010; J3475; P9040; P9047